=== PATIENT | male | born 1960 | race Caucasian/White ===

== ENCOUNTER 2020-08-05 07:20 | Outpatient (REF) | payer MEDICARE, SELFPAY ==
--- NOTE | ~2020-08-05 | MR_ITS ---
EXAMINATION: MR BRAIN WITHOUT CONTRAST CLINICAL INFORMATION: Optic neuritis. COMPARISON: None. TECHNIQUE: Multiplanar, multisequence imaging of the brain was performed without contrast. FINDINGS: No diffusion abnormalities are identified to suggest an acute infarct. The ventricles are normal in size. No mass effect or midline shift is seen. There is minimal T2 hyperintense signal change adjacent to the frontal horn of the right lateral ventricle. The remainder of the brain parenchyma appears normal. No extra-axial fluid collections are seen. The brainstem and cerebellum are normal. The gradient refocused acquisition is normal. The craniovertebral junction, marrow signal, and midline structures are normal. The major intracranial flow voids at the level of the [place] are preserved. The dural venous sinus flow voids are maintained. The mastoid air cells are well aerated. There is mild ethmoid sinus mucosal thickening, more so on the left side. MR/MR head/brain wo con IMPRESSION: No acute intracranial process. Minimal nonspecific right frontal periventricular white matter signal change of indeterminate clinical significance.
== END 2020-08-05 07:21 | disposition home or self-care (01) ==
LOC: HO.MRI 07:20
PROVIDERS: PCP Family Medicine; Visit Provider Psychiatry & Neurology Neurology
DX: H46.9 Unspecified optic neuritis (principal)
CPT/HCPCS: 70551

== ENCOUNTER 2023-09-20 06:59 | Emergency (ER) | payer MEDICARE, SELFPAY ==
--- NOTE | 2023-09-20 | ECG_ITS ---
Test Reason : chest pain Blood Pressure : / mmHG Vent. Rate : 058 BPM Atrial Rate : 058 BPM P-R Int : 142 ms QRS Dur : 102 ms QT Int : 408 ms P-R-T Axes : 067 052 077 degrees QTc Int : 400 ms Sinus bradycardia Inferior-posterior infarct , possibly acute ACUTE DE / STEMI Consider right ventricular involvement in acute inferior infarct Abnormal ECG No previous ECGs available Referred By: Generic ED Physician Electronically Signed By:CANDY NAVARRO MD
[2023-09-20 07:02] VITALS: BMI 28.3
--- NOTE | 2023-09-20 07:11 | ED_ITS ---
HPI - Chest Pain General Chief Complaint: Chest Pain Stated Complaint: Chest Pains Time Seen by Provider: 09/20/23 07:06 Source: patient Mode of arrival: ambulatory Limitations: no limitations History of Present Illness ED Provider: CHANCE VANEGAS narrative: 63 yo male with PMH of back pain on Rx oxycodone smokes THC quite cigarrettes 4 years ago has been having some irregular heartbeats recently so PCP was going to put him on holter monitor. He has noted increased YOUSIF or pain with exertion. Last two days chest pain on and off that worsened at 1030pm last night and will not go away across entire chest with dyspnea and nausea. He has two small bites on R posterior thigh after working in garden but has been having YOUSIF and irregular heartbeat and fatigue prior to that. The bites are dark purple and no ring noted. MD complaint: chest pain Onset (ago): day(s) (2) Timing of current episode: episodic Prior episodes: No Onset: during exertion Pain location: left chest and right chest Pain radiation: none Severity: severe Quality: other (pressure) Relieving factors: nothing Exacerbating factors: exertion Associated symptoms: nausea, diaphoresis and dyspnea Treatment prior to arrival: none Related Data Allergies Allergy/AdvReac Type Severity Reaction Status Date / Time No Known Allergies Allergy Verified 09/20/23 07:08 Review of Systems 2 Review of Systems: Constitutional : No Weight loss, No Fever, No Chills ENT/Mouth : No sore throat, No Rhinorrhea Eyes: No Eye Pain, No Swelling Cardiovascular : pos Chest Pain, pos SOB, pos Dyspnea on Exertion, No Orthopnea, No Edema, No Palpitations Respiratory : No Cough, No Sputum Gastrointestinal : pos Nausea, No Vomiting, No Diarrhea, No abdominal Pain, No Hematochezia, No Melena Genitourinary : No Dysuria, No Urinary Frequency Musculoskeletal : No joint pain, No Myalgias, No Joint Swelling Skin : No Skin Lesions, No rash Neuro : No Weakness, No Numbness, No Dizziness, No Headache All other systems reviewed and are negative [facility] Past Medical History Attestation statement: The following information was validated with the patient. Medical History Chronic back pain Social History Social History (Updated 09/20/23 @ 07:22 by Liliya Ramachandran DO) Patient Tobacco Use Status: Former Tobacco user Substance Use Type: Marijuana Physical Exam 2 Vital Signs: Vital Signs: Last Vital Signs Temp 97.8 F 09/20/23 07:13 Pulse 63 09/20/23 07:13 Resp 22 H 09/20/23 07:13 BP 143/69 H 09/20/23 07:13 Pulse Ox 99 09/20/23 07:13 O2 Del Method Room Air 09/20/23 07:13 BMI result Body Mass Index 28.3 Appearance: Alert. Oriented X3. in pain mild acute distress. Eyes: Pupils equal, round and reactive to light. ENT: Pharynx normal. Neck: Normal inspection. Neck supple. CVS: Normal heart rate and rhythm. Pulses normal. Respiratory: No respiratory distress. Breath sounds normal. Abdomen: Soft and nontender. Skin: Skin warm and slightly clammy. pale skin color. Normal skin turgor. Extremities: No lower extremity edema. R posterior thigh two small purple bites no associated bullseye or cellulitis Neuro: Oriented X 3. No motor deficit. No sensory deficit. Course Course Course Narrative: on arrival EKG was 0700 EMS and [facility] notified and called accepted by fellow after callback at 715am EMS has been notifed at 0700 still pending EMS transport at this time. We have called [facility] again to figure out transportation and where ambulance is. EMS in ED at 0729am patient has left the ED 735am Medications Administered Generic Name Dose Route Start Last Admin Trade Name Freq PRN Reason Stop Dose Admin Sodium Chloride 1,000 mls @ 999 mls/hr 09/20/23 07:10 09/20/23 07:18 Ns IV 09/20/23 08:10 999 mls/hr .Q1H1M ONE Administration Discontinued Medications Generic Name Dose Route Start Last Admin Trade Name Freq PRN Reason Stop Dose Admin Aspirin 324 mg 09/20/23 07:10 09/20/23 07:12 Aspirin 81 Mg Tab.Chew PO 09/20/23 07:11 324 mg ONCE ONE Administration Atorvastatin Calcium 80 mg 09/20/23 07:10 09/20/23 07:14 Atorvastatin Calcium 80 Mg Tablet PO 09/20/23 07:11 80 mg ONCE ONE Administration Fentanyl 50 mcg 09/20/23 07:10 09/20/23 07:15 Fentanyl Citrate/Pf 100 Mcg/2 Ml Vial IVPUSH 09/20/23 07:11 50 mcg ONCE ONE Administration Protocol Heparin Sodium (Porcine) 4,000 unit 09/20/23 07:10 09/20/23 07:18 Heparin Sodium,Porcine 5,000 Unit/Ml Vial IVPUSH 09/20/23 07:11 4,000 unit ONCE ONE Administration Ticagrelor 180 mg 09/20/23 07:10 09/20/23 07:12 Ticagrelor 90 Mg Tablet PO 09/20/23 07:11 180 mg ONCE ONE Administration Medical Decision Making Medical Decision Making MDM Narrative: 63 yo male with no sig PMH quit smoking 4 years ago only smokes THC no cocaine here with worsening chest pain x 2 days then non stop since 1030pm at this time inf and posterior KS - start on medication denies bleeding concerns - aspirin statin brilinta heparin fentanyl for pain - IVF no signs of overload on exam and transfer for cath. Differential Diagnosis Differential Diagnoses: The differential diagnosis associated with the presentation includes STEMI Admission/Observation Consideration of admission/observation: Escalation of care including admission/observation considered transfer to [facility] lab[facility] Consult Healthcare Provider Management of the patient was discussed with: Forensic Science Examiner (cardiac fellow ) Lab Data [facility] Lab Attestation statement: I reviewed the patient's lab results. 09/20/23 07:17 09/20/23 07:17 Labs: Lab Results 09/20/23 Range/Units 07:17 WBC 13.2 H (4.8-10.8) X10*3/uL RBC 5.76 (4.60-5.80) X10*6/uL Hgb 16.0 (14.0-18.0) g/dl Hct 47.8 (42.0-52.0) % MCV 83.0 (80.0-98.0) fL MCH 27.8 (27.0-33.0) pg MCHC 33.5 (31.0-36.0) g/dl RDW 15.0 (11.0-16.0) % Plt Count 212 (160-400) X10*3/uL MPV 8.8 L (9.4-12.4) fL Immature Gran % (Auto) 0.3 (0.0-0.4) % Neut % (Auto) 88.0 H (45-73) % Lymph % (Auto) 8.7 L (20-40) % Burke % (Auto) 2.8 (2-11) % Eos % (Auto) 0.0 (0-4) % Baso % (Auto) 0.2 (0-2) % Lymph # (Auto) 1.2 (1.2-4.9) X10*3/uL Burke # (Auto) 0.4 (0.1-1.2) X10*3/uL Eos # (Auto) 0.0 (0.0-0.4) X10*3/uL Baso # (Auto) 0.0 (0.0-0.2) X10*3/uL Abs Immat Gran (auto) 0.04 H (0.00-0.03) X10*3/uL Absolute Neuts (auto) 11.6 H (2.0-8.3) x10*3/uL Absolute Nucleated RBC 0.000 (0.0-0.012) X10*3/uL Nucleated RBC % (auto) 0.0 (0.0-0.2) /100WBC Independent Interpretation I performed an independent interpretation of an: EKG Interpretation: Rate: 58 Rhythm: sinus bradycardia [place]: normal Normal P waves. Normal MARIAA. Normal QRS complex. ST T wave : ALISHA II, III, avf, ST depressions I avl and V1-V3 qTC: 400 prior studies: inf post acute KS The study has been interpreted contemporaneously by me. . External Record Review External record reviewed: Office record Critical Care Time Critical Care Time Critical Care Time: Yes Total Critical Care Time: 30 Attestation: coordination of care, EMS transfer, consult, review of records, review of labs, STEMI transfer I attest to this time spent taking care of the patient IV fentanyl with improvement in pain Discharge Plan Discharge Clinical Impression: ST elevation myocardial infarction (STEMI) Transfer Details: [facility] Print Language: Turkish
[2023-09-20] MEDS: Ticagrelor 90 MG TABLET 180 MG PO (07:12)
[2023-09-20] MEDS: Aspirin 81 MG TAB.CHEW 324 MG PO (07:12)
[2023-09-20 07:13] VITALS: BP 143/69; PULSE 63; RESP 22; TEMP 36.6; O2SAT 99
[2023-09-20] MEDS: Atorvastatin Calcium 80 MG TABLET PO (07:14)
[2023-09-20] MEDS: fentaNYL citrate/PF 100 MCG/2 ML VIAL 50 MCG IVPUSH (07:15)
[2023-09-20] MEDS: 0.9 % Sodium Chloride 1,000 ML 999 ML IV (07:18)
[2023-09-20] MEDS: Heparin Sodium,Porcine 5,000 UNIT/ML VIAL 4000 UNIT IVPUSH (07:18)
--- NOTE | 2023-09-20 07:18 | PC.NURSE ---
pt presents to the ED from home. upon arrival to triage - pt c/o 10/10 left sided chest pain that started last night. woke him up from his sleep. pt waited until this morning to come to ED after calling his aunt who advised him to come. 1 episode n/v. pt denies sob. pt also states that pressure/aching sensation is nonradiating but c/o numbness/tingling behind LE bilaterally. upon entering ED2- pt c/o 10/10 pain in left side of chest. no sob/wob noted. 20gIV placed in the right AC - labs obtained/sent to lab. stemi kit pulled from [employer] by charge, BRITTNEY Dixon. medication administered per provider order. ekg performed by tech. pt seen by ED provider/aware of plan of care moving forward.
[2023-09-20 07:21] LABS: MANUAL DIFF FLAG NO
[2023-09-20 07:24] LABS: Basophils Percent Auto 0.2 % (0-2); Hematocrit 47.8 % (42.0-52.0); Imm Gran Abs Auto 0.04 X10*3/uL (0.00-0.03); Imm Gran Pct Auto 0.3 % (0.0-0.4); Lymphocytes Absolute Auto 1.2 X10*3/uL (1.2-4.9); Lymphocytes Percent Auto 8.7 % (20-40); Mean Corpuscular HGB Conc 33.5 g/dl (31.0-36.0); Mean Corpuscular Hemoglobin 27.8 pg (27.0-33.0); Mean Platelet Volume 8.8 fL (9.4-12.4); Monocytes Absolute Auto 0.4 X10*3/uL (0.1-1.2); Monocytes Percent Auto 2.8 % (2-11); Neutrophils Absolute Auto 11.6 x10*3/uL (2.0-8.3); Platelet Count 212 X10*3/uL (160-400); Red Blood Count 5.76 X10*6/uL (4.60-5.80); White Blood Count 13.2 X10*3/uL (4.8-10.8)
[2023-09-20 07:28] LABS: Prothrombin Time 11.8 SEC (11.1-13.3)
[2023-09-20 07:31] VITALS: BP 123/72; PULSE 76; RESP 20; O2SAT 98
--- NOTE | 2023-09-20 07:34 | PC.NURSE ---
you arrived at this time. report given to ALS crew. pt leaving [facility] to go to [facility] lab[facility].
[2023-09-20 07:41] LABS: Alanine Aminotransferase 24 U/L (0-40); Albumin Level 4.4 g/dL (3.5-5.0); Alkaline Phosphatase 61 U/L (39-117); Anion Gap 16 (12-20); Aspartate Amino Transferase 55 U/L (5-37); Bilirubin Direct 0.2 mg/dL (0.0-0.5); Bilirubin Total 0.6 mg/dL (0.0-1.0); Blood Urea Nitrogen 12 mg/dL (9-16); Calcium 9.5 mg/dL (8.4-10.2); Carbon Dioxide 24 mmol/L (22-29); Chloride 104 mmol/L (96-108); Creatinine Clr Calc Pharmacy 89.2; Estimated Glomerular Filt Rate > 60; Glucose Random 158 mg/dL (60-115); Potassium 4.4 mmol/L (3.3-5.1); Sodium 140 mmol/L (135-145); Total Protein 7.7 g/dL (6.5-8.0)
--- NOTE | 2023-09-20 07:42 | PC.NURSE ---
report given to BRITTNEY Mancuso in the corn lab technician at [facility] at this time.
[2023-09-20 07:43] VITALS: BP 123/72; PULSE 76; RESP 20; TEMP 36.6; O2SAT 98
[2023-09-20 07:50] LABS: Troponin-I High Sensitivity 1951.5 ng/L (<3.5-35.0)
== END 2023-09-20 08:00 | disposition short-term general hospital (02) ==
PROVIDERS: Emergency Provider Emergency Medicine; PCP Family Medicine
DX: I21.29 ST elevation (STEMI) myocardial infarction involving other sites (principal); S70.361A Insect bite (nonvenomous), right thigh, initial encounter; W57.XXXA Bitten or stung by nonvenomous insect and other nonvenomous arthropods, initial encounter; R06.09 Other forms of dyspnea; R06.02 Shortness of breath; R61 Generalized hyperhidrosis; G89.29 Other chronic pain; M54.9 Dorsalgia, unspecified; F12.90 Cannabis use, unspecified, uncomplicated; Z87.891 Personal history of nicotine dependence; Y93.H2 Activity, gardening and landscaping; Y92.007 Garden or yard of unspecified non-institutional (private) residence as the place of occurrence of the external cause; Y99.9 Unspecified external cause status; Z79.891 Long term (current) use of opiate analgesic
CPT/HCPCS: 36415; 80048; 80076; 83735; 84484; 85025; 85610; 93005; 96374; 96375; 99285; J1644; J3010

== ENCOUNTER → 2023-09-20 07:00 | Outpatient (BNV) | payer MEDICARE, SELFPAY | PROVIDERS: Emergency Provider Emergency Medicine; PCP Family Medicine; Visit Provider Internal Medicine Cardiovascular Disease | DX: R07.9 Chest pain, unspecified (principal); R00.1 Bradycardia, unspecified; R94.31 Abnormal electrocardiogram [ECG] [EKG] | CPT/HCPCS: 93010 ==

== ENCOUNTER 2023-10-04 14:38 | Outpatient (AMB) | payer MEDICARE, SELFPAY ==
--- NOTE | 2023-10-04 14:50 | MHC.OFFVIS ---
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 Intake Note: New patient was in [facility] and transfered to [facility] had stent feeling ok Chief School Finance Officer Required: No Allergies No Known Allergies Allergy (Verified 09/20/23 07:08) Medication List - Last Reconciled 10/04/23 by Corey Gilbert MD aspirin (Adult Aspirin Regimen) 81 mg PO DAILY atorvastatin 80 mg PO BEDTIME clopidogrel 75 mg PO DAILY metoprolol succinate ER 25 mg PO DAILY omeprazole 20 mg PO DAILY oxycodone-acetaminophen 5-325 mg 1 tab PO Q8H PRN HPI Comments Details: Thank you for referring Gibson in cardiology consultation today for management of coronary artery disease status post recent ST-elevation myocardial infarction. He has a 63-year-old male who said he was in good health and had hyperlipidemia but currently not treated suddenly developed chest pain syndrome at 10:30 in the night, waited till 06:00 in the morning came to the emergency room and was noted to have ST-elevation inferior myocardial infarction. He was then emergently transferred to [facility] very underwent emergent cardiac catheterization with noted 100% occlusion of the RCA undergoing drug-eluting stent. Post ND echocardiogram showed mildly reduced LV ejection fraction to 40-50% with associated inferior inferolateral wall motion abnormality. He was then discharged home on dual antiplatelet therapy, high-intensity statin therapy as well as metoprolol therapy without any clear follow-up. He comes for follow-up today and has been doing pretty exertional work in the d including filing of would as well as managing his lawn. He said he feels weak and had some episode of chest pressure in his over doing an exerting himself but has not had any lightheadedness, syncope. No prolonged palpitation irregular heartbeat. No heart failure symptoms. [facility] Medical History CAD (coronary artery disease) Chronic back pain Surgical History Stented coronary artery Hx of cardiac cath Family History Father No problems noted. Mother No problems noted. Social History Patient Tobacco Use Status: Former Tobacco user Substance Use Type: Marijuana Review of Systems Const Denies chills, Denies fatigue, Denies fever(s), Denies frequent falls, Denies weakness, Denies weight gain and Denies weight loss Eyes Denies loss of vision ENT Denies dizziness Card Denies chest pain, Denies leg edema, Denies lightheadedness, Denies palpitations, Denies dyspnea, Denies dyspnea on exertion, Denies orthopnea and Denies other (loss of consciousness) Resp Denies cough, Denies dyspnea, Denies dyspnea on exertion and Denies wheezing GI Denies hematochezia and Denies change in stool character Denies dysuria and Denies urinary frequency Musc Denies abnormal gait, Denies muscle weakness, Denies numbness, Denies radiating pain into limb and Denies tingling Skin/Breast Denies nail changes and Denies rash Neuro Denies abnormal gait, Denies dizziness, Denies frequent falls, Denies loss of vision, Denies memory loss, Denies numbness, Denies tingling and Denies weakness Psych Denies depression and Denies memory loss Endo Denies fatigue and Denies palpitations Cristobal/Lymph Reports easy bruising and Reports other (anemia) Aller/Immun Denies wheezing Physical Exam Vital Signs: Last Vital Signs Pulse 70 10/04/23 14:51 BP 130/70 10/04/23 14:51 BMI result Body Mass Index 28.3 Const General: cooperative, comfortable, no acute distress, alert, awake and Physically active Nutritional Appearance: average body habitus Orientation/consciousness: patient oriented x3 Limitations: no limitations HEENT Head: Yes normocephalic and Yes atraumatic Neck Neck: Yes trachea midline, Yes supple and Yes no JVD Resp Effort & Inspection: normal respiratory effort Auscultation: clear to auscultation bilaterally Cardio Jugular venous distension: no JVD Palpation: normal PMI Rate: regular rate Rhythm: regular rhythm Heart sounds: S1 normal heart sound present, S2 normal heart sound present, no click, no gallops, no murmurs and no rubs GI Auscultation: normal bowel sounds Skin General skin exam: no rashes or lesions noted Neuro General: patient oriented x3 and no focal motor deficits Extrem General: Yes no clubbing, cyanosis or edema Psych Appearance: grossly normal Office Procedures EKG Details: EKG shows normal sinus rhythm with inferior infar[place] [id number], Complete Assessment & Plan Assessment & Plan (1) Subsequent ST elevation (STEMI) myocardial infarction of inferior wall: Code(s): I22.1 - Subsequent ST elevation (STEMI) myocardial infarction of inferior wall Category: Medical Plan: Patient status post recent inferior ST-elevation myocardial infarction with persistent wall motion abnormality and LV systolic dysfunction. I have strongly recommended him to participate in phase 2 cardiac rehabilitation avoid strenuous exertion at home. We discussed pathophysiology of acute myocardial infarction and management of such. Discussed high-risk in the 1st 30 days following myocardial infarction as well as elevated risk for the 1st year after index event. He understands agrees. (2) CAD (coronary artery disease): Code(s): I25.10 - Atherosclerotic heart disease of [place] coronary artery without angina pectoris Category: Medical Plan: CAD with inferior STEMI with recent drug-eluting stent to the RCA. Pathophysiology of acute coronary syndrome as well as pathophysiology and management of drug-eluting stent was discussed. Continue uninterrupted dual antiplatelet therapy for 1 year. May consider prolonged dual antiplatelet therapy if his bleeding risk remains low. Continue aggressive blood pressure control. Continue high-intensity statin therapy. Target goal LDL closer to 60 mg/dL. Complete smoking cessation advised. Follow-up lipid panel in 6 weeks time. Participate in phase 2 cardiac rehabilitation as above. Advised to call me with any new symptoms. (3) Ischemic cardiomyopathy: Code(s): I25.5 - Ischemic cardiomyopathy Category: Medical Plan: Ischemic cardiomyopathy with mild LV systolic dysfunction with wall motion abnormality in the RCA territory without any evidence of congestive heart failure. Continue metoprolol therapy for neurohormonal modulation. Will add valsartan for neurohormonal modulation. Pathophysiology associated LV systolic dysfunction was discussed. Goals of therapy were discussed. Follow-up echocardiogram in 4 weeks time to see if there was associated with myocardial standing and if there is improvement in LV ejection fraction. Signs and symptoms of heart failure were discussed. Follow up in the clinic in 6 weeks time, sooner p.r.n.. Thank you for allowing me to partake in his care Orders: Orders Cardiac Rehab Today I22.1 - Subsequent ST elevation (STEMI) myocardial infarction of inferior wall, Z95.2 - Presence of prosthetic heart valve CA echo limited 4 Weeks I25.5 - Ischemic cardiomyopathy Lipid Panel 6 Weeks I25.10 - Atherosclerotic heart disease of [place] coronary artery without angina pectoris Medications: New valsartan 40 mg PO DAILY 30 tabs 5RF I25.10 - Atherosclerotic heart disease of [place] coronary artery without angina pectoris Coding Level of Care Code New Pt Level 4 (89611) Diagnoses Subsequent ST elevation (STEMI) myocardial infarction of inferior wall I22.1 CAD (coronary artery disease) I25.10 Ischemic cardiomyopathy I25.5 CPT Codes EKG - CPT: [id number], Complete ([id number])
[2023-10-04 14:51] VITALS: BP 130/70; PULSE 70; BMI 28.3
== END 2023-10-04 15:21 | disposition home or self-care (01) ==
PROVIDERS: PCP Family Medicine; Visit Provider Internal Medicine Cardiovascular Disease
DX: I22.1 Subsequent ST elevation (STEMI) myocardial infarction of inferior wall (principal); I25.10 Atherosclerotic heart disease of native coronary artery without angina pectoris; I25.5 Ischemic cardiomyopathy; Z95.5 Presence of coronary angioplasty implant and graft
CPT/HCPCS: 93010; 99214

== ENCOUNTER → 2023-10-04 14:38 | Outpatient (BNVA) | payer MEDICARE, SELFPAY | PROVIDERS: PCP Family Medicine; Visit Provider Internal Medicine Cardiovascular Disease | DX: I22.1 Subsequent ST elevation (STEMI) myocardial infarction of inferior wall (principal); I25.10 Atherosclerotic heart disease of native coronary artery without angina pectoris; I25.5 Ischemic cardiomyopathy | CPT/HCPCS: 93005; 99212 ==

== ENCOUNTER → 2023-11-03 07:48 | Outpatient (REF) | payer MEDICARE, SELFPAY ==
--- NOTE | 2023-11-03 07:51 | CA_ITS ---
Transthoracic Echocardiogram Patient (Last, First, Middle): Gibson Medina A Gender: Male Date of : 1960 Age: 63 Procedure Date: 11/03/2023 Procedure Type: Transthoracic Echocardiogram Location: OP Height: 175.26 cm Weight: 83.92 kg BSA: 2.00 m2 Heart Rate: 56 bpm BP: 118 / 70 mmHg Grooming Assistant: YAMILET Referring MD: Corey Gilbert MD Electrical Engineering Designer: Corey Gilbert MD Symptoms: I25.5 - Ischemic cardiomyopathy Study Quality: Adequate w/Contrast, Limited by order ECG Rhythm: Bradycardia Conclusions: - Normal LV ejection fraction 55-60% with impaired relaxation filling pattern with regional wall motion abnormality in RCA territory Findings Procedure Information Contrast agent, definity, is being given per protocol without apparent complications. Left Ventricle Normal left ventricular cavity size. There is normal left ventricular wall thickness. The left ventricular systolic function is normal. The visually estimated ejection fraction is between 55-60%. Spectral Doppler is indicative of an impaired relaxation filling pattern. Wall Motion Rest Echo Findings The mid inferoseptal segment is hypokinetic. The basal inferior, mid inferior, and basal inferoseptal segments are akinetic. All other scored wall segments showed normal motion. Prior Study Comparison No prior study available for comparison. Measurements 2D Linear Measurements IVSd: 0.75 0.6-0.9/0.6-1.0 cm LVIDd: 5.36 3.9-5.3/4.2-5.9 cm LVIDd Index: 2.68 2.4-3.2/2.2-3.1 cm/m2 LVIDs: 4.55 2.0-3.6 cm LVPWd: 0.88 0.7-1.1 cm LV Mass: 194.59 67-162/88-224 g LV Mass Index: 97.29 43-95/49-115 g/m2 LVOT Diam: 2.00 3.0+(-)1.3 cm 2D Systolic Function EF 4C: 59.00 >55% EF 2C: 57.40 >55% EF BiP: 58.60 >55% Mitral Valve MV Pk E: 0.92 MV PK A: 0.60 MV Decel Time: 167.00 E/A: 1.50 E'Lateral: 12.70 E'Medial: 8.49 E/E' Med: 10.80 E/E' Lat: 7.20 PHT: 49.00 MVA PHT: 4.49 Decel Willacy: 5.49 LVOT LVOT Pk Donald: 1.34 LVOT Mn Donald: 0.86 LVOT VTI: 0.28 LVOT Pk Grad: 7.00 LVOT Mn Grad: 4.00 LVOT Diam: 2.00 LVOT Area: 3.14 Diastolic Function MV Pk E: 0.92 MV Pk A: 0.60 E/A: 1.50 E'Medial: 8.49 E/E' Med: 10.80 E' Laterial: 12.70 E/E' Lat: 7.20 Updated in Other Vendor System with Status of Final Corey Gilbert MD electronically signed on 11/04/2023 11:46:08 AM with status of Final
== END ==
LOC: HO.CARD 07:48
PROVIDERS: PCP Family Medicine; Visit Provider Internal Medicine Cardiovascular Disease
DX: I25.5 Ischemic cardiomyopathy (principal)
CPT/HCPCS: 93308; Q9957

== ENCOUNTER → 2023-11-03 07:51 | Outpatient (BNV) | payer MEDICARE, SELFPAY | PROVIDERS: PCP Family Medicine; Visit Provider Internal Medicine Cardiovascular Disease | DX: I25.5 Ischemic cardiomyopathy (principal) | CPT/HCPCS: 93308; 93321; 93325 ==

== ENCOUNTER 2023-11-16 08:31 | Outpatient (AMB) | payer MEDICARE, SELFPAY ==
[2023-11-16 08:33] VITALS: BP 122/70; PULSE 68; BMI 27.9
--- NOTE | 2023-11-16 08:33 | A.OFFVIS_ITS ---
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 Allergies No Known Allergies Allergy (Verified 11/16/23 08:36) Medication List - Last Reconciled 11/16/23 by Cele Armas NP-C aspirin (Adult Aspirin Regimen) 81 mg PO DAILY atorvastatin 80 mg PO BEDTIME clopidogrel 75 mg PO DAILY metoprolol succinate ER 25 mg PO DAILY omeprazole 20 mg PO DAILY oxycodone-acetaminophen 5-325 mg 1 tab PO Q8H PRN valsartan 40 mg PO DAILY HPI HPI 6 wk f/up echo NS: Details: Gibson is a 63-year-old male with past medical history of hyperlipidemia who had recent inferior STEMI with drug-eluting stent placement to the RCA residual make cardiomyopathy who recently had a repeat echocardiogram and now presents for follow-up. Today he reports that he has been feeling well with no concerning chest discomfort. He has been doing exercises at home using a home gym set up. He has not been doing any cardio workout. He is starting cardiac rehab today. There was a delay in starting rehab due to various reasons. He is concerned about how he will feel when he gets his heart rate up and holds it there such as doing treadmill activities. No concerning shortness of breath, PND, orthopnea or edema. No lightheadedness, presyncope, syncope, falls. Taking meds as directed. FOR[facility]LY [facility], [facility] Medical History CAD (coronary artery disease) Chronic back pain Surgical History Stented coronary artery Hx of cardiac cath Family History Father No problems noted. Mother No problems noted. Social History Patient Tobacco Use Status: Former Tobacco user Substance Use Type: Marijuana Review of Systems Const All systems reviewed & are unremarkable except as noted in HPI and below ENT Denies dizziness Card Denies chest pain, Denies chest pain at rest, Denies chest pain with activity, Denies rapid heart rate, Denies pedal edema, Denies edema, Denies leg edema, Denies lightheadedness, Denies palpitations, Denies dyspnea, Denies dyspnea on exertion and Denies orthopnea Resp Denies cough, Denies dyspnea and Denies dyspnea on exertion GI Denies hematochezia and Denies change in stool character Musc Denies abnormal gait, Denies limited range of motion, Denies muscle cramps, Denies muscle weakness, Denies numbness, Denies radiating pain into limb, Denies stiffness and Denies tingling Neuro Denies abnormal gait, Denies dizziness, Denies numbness and Denies tingling Endo Denies palpitations Physical Exam Vital Signs: Last Vital Signs Pulse 68 11/16/23 08:33 BP 122/70 11/16/23 08:33 BMI result Body Mass Index 27.9 Const General: cooperative, healthy appearing, comfortable and no acute distress Orientation/consciousness: patient oriented x3 Neck Neck: Yes normal visual inspection and Yes no JVD Resp Effort & Inspection: normal respiratory effort Auscultation: clear to auscultation bilaterally, no crackles, no rales, no rhonchi and no wheezes Cardio Jugular venous distension: no JVD Rate: regular rate Rhythm: regular rhythm Heart sounds: S1 normal heart sound present, S2 normal heart sound present, no murmurs and no rubs Neuro General: patient oriented x3 Extrem General: Yes normal to inspection, No no pedal edema and No calf tenderness Psych Appearance: grossly normal Mental Status: mental status grossly normal Speech and movement: Normal speech and movement present Assessment & Plan Assessment & Plan (1) CAD (coronary artery disease): Code(s): I25.10 - Atherosclerotic heart disease of [place] coronary artery without angina pectoris Category: Medical Plan: Newer finding of CAD. Inferior STEMI 09/20/2023. Cardiac catheterization performed showing 100% RCA stenosis, ALINE was placed. Echocardiogram showed EF 40-50%, inferior and inferior lateral wall motion abnormality. He was started on dual anti-platelet therapy, high-dose atorvastatin, metoprolol. A repeat echocardiogram done 11/03/2023 showed EF 55-60%, impaired relaxation, wall motion abnormality in the RCA territory. Today he reports he has been feeling well with no concerning symptoms. He has not done any cardio workout. He plans to start cardiac rehab today. Signs and symptoms of angina reviewed. He says at the time of his SC he experienced a heavy pressure in his mid chest. Will have him continue aspirin and clopidogrel, dual anti-platelet therapy for at least 1 year, likely longer. Continue metoprolol and valsartan for neurohormonal modulation. Blood pressure today well controlled at 122/70. Continue high-dose atorvastatin with ideal LDL goal less than 70, closer to 60. He has upcoming labs do for his PCP, including cholesterol. Cardiology follow-up 3 months, sooner if needed. (2) Subsequent ST elevation (STEMI) myocardial infarction of inferior wall: Comment: STEMI 09/20/2023, cardiac catheterization left main and LAD minimal luminal irregularities, left circumflex mild luminal irregularities, RCA mid 100% stenosis, ALINE placed Code(s): I22.1 - Subsequent ST elevation (STEMI) myocardial infarction of inferior wall Category: Medical Plan: As above (3) Ischemic cardiomyopathy: Code(s): I25.5 - Ischemic cardiomyopathy Category: Medical Plan: As above. EF normalized on repeat echocardiogram, continues to have inferior wall motion abnormality. No clinical signs of heart failure on examination. (4) HLD (hyperlipidemia): Code(s): E78.5 - Hyperlipidemia, unspecified Category: Medical Plan: As above Plan Time spent on chart review, documentation, interview and assessment Coding Level of Care Code Est Pt Level 4 (50272) Diagnoses CAD (coronary artery disease) I25.[address] elevation (STEMI) myocardial infarction of inferior wall I22.1 Ischemic cardiomyopathy I25.5 HLD (hyperlipidemia) E78.5 Time Spent (min) 28
== END 2023-11-16 08:58 | disposition home or self-care (01) ==
LOC: HO.HCS 08:31
PROVIDERS: PCP Family Medicine; Visit Provider Nurse Practitioner Family
DX: I25.10 Atherosclerotic heart disease of native coronary artery without angina pectoris (principal); I22.1 Subsequent ST elevation (STEMI) myocardial infarction of inferior wall; I25.5 Ischemic cardiomyopathy; E78.5 Hyperlipidemia, unspecified
CPT/HCPCS: 99214

== ENCOUNTER → 2023-11-16 08:31 | Outpatient (BNVA) | payer MEDICARE, SELFPAY | PROVIDERS: PCP Family Medicine; Visit Provider Nurse Practitioner Family | DX: I25.5 Ischemic cardiomyopathy (principal); I22.1 Subsequent ST elevation (STEMI) myocardial infarction of inferior wall; E78.5 Hyperlipidemia, unspecified; Z95.5 Presence of coronary angioplasty implant and graft; Z98.890 Other specified postprocedural states | CPT/HCPCS: 99212 ==

== ENCOUNTER 2023-11-24 07:00 | Outpatient (RCR) | payer MEDICARE, SELFPAY | END 2023-11-27 07:06 | disposition home or self-care (01) | LOC: HO.CR 07:00 | PROVIDERS: PCP Family Medicine; Visit Provider Internal Medicine Cardiovascular Disease | DX: I22.1 Subsequent ST elevation (STEMI) myocardial infarction of inferior wall (principal); Z95.2 Presence of prosthetic heart valve | CPT/HCPCS: 93797; 93798 ==

== ENCOUNTER 2024-03-07 13:08 | Outpatient (AMB) | payer MEDICARE, SELFPAY ==
[2024-03-07 13:11] VITALS: BP 120/62; PULSE 75; BMI 28.2
--- NOTE | 2024-03-07 13:11 | MHC.OFFVIS ---
Vital Signs 03/07/24 13:11 Height 5 ft 7 in Weight 180 lb 5.41 oz BMI 28.2 BP 120/62 Blood Pressure Location Lt brachial Position Sitting Pulse 75 Pulse Source Pulse Oximeter Intake Visit Reasons: 3m follow up Allergies No Known Allergies Allergy (Verified 03/07/24 13:14) Medication List - Last Reconciled 03/07/24 by Cele Armas NP-C aspirin (Adult Aspirin Regimen) 81 mg PO DAILY atorvastatin 80 mg PO BEDTIME clopidogrel 75 mg PO DAILY metoprolol succinate ER 25 mg PO DAILY oxycodone-acetaminophen 5-325 mg 1 tab PO Q8H PRN pantoprazole (Protonix) 40 mg PO DAILY valsartan 40 mg PO DAILY HPI HPI 3m follow up: Details: Gibson is a 63-year-old male with past medical history of hyperlipidemia who had inferior STEMI, 09/20/23, with drug-eluting stent placement to the RCA, ischemic cardiomyopathy who presents for follow up. Today he reports that he has been feeling well with recurrent chest discomfort. He tried cardiac rehab but only attended a few sessions. He exercises at home every other day which has been his pattern throughout his adulthood. He uses exercise machines and does a treadmill for 30 minutes at a time. He tolerates this well with no concerning symptoms. No shortness of breath, PND, orthopnea or edema. No lightheadedness, presyncope, syncope, falls. Taking meds as directed. No bleeding issues reported. FORMERLY [facility] Medical History CAD (coronary artery disease) Chronic back pain Surgical History Stented coronary artery Hx of cardiac cath Family History Father No problems noted. Mother No problems noted. Social History Patient Tobacco Use Status: Former Tobacco user Substance Use Type: Marijuana Review of Systems Const All systems reviewed & are unremarkable except as noted in HPI and below ENT Denies dizziness Card Denies chest pain, Denies chest pain at rest, Denies chest pain with activity, Denies rapid heart rate, Denies pedal edema, Denies edema, Denies leg edema, Denies lightheadedness, Denies palpitations, Denies dyspnea, Denies dyspnea on exertion and Denies orthopnea Resp Denies cough, Denies dyspnea and Denies dyspnea on exertion GI Denies hematochezia and Denies change in stool character Musc Denies abnormal gait, Denies limited range of motion, Denies muscle cramps, Denies muscle weakness, Denies numbness, Denies radiating pain into limb, Denies stiffness and Denies tingling Neuro Denies abnormal gait, Denies dizziness, Denies numbness and Denies tingling Endo Denies palpitations Physical Exam Vital Signs: BMI result Body Mass Index 28.2 Const General: cooperative, healthy appearing, comfortable and no acute distress Orientation/consciousness: patient oriented x3 Neck Neck: Yes normal visual inspection and Yes no JVD Resp Effort & Inspection: normal respiratory effort Auscultation: clear to auscultation bilaterally, no crackles, no rales, no rhonchi and no wheezes Cardio Jugular venous distension: no JVD Rate: regular rate Rhythm: regular rhythm Heart sounds: S1 normal heart sound present, S2 normal heart sound present, no murmurs and no rubs Neuro General: patient oriented x3 Extrem General: Yes normal to inspection, No no pedal edema and No calf tenderness Psych Appearance: grossly normal Mental Status: mental status grossly normal Speech and movement: Normal speech and movement present Assessment & Plan Assessment & Plan (1) CAD (coronary artery disease): Code(s): I25.10 - Atherosclerotic heart disease of [place] coronary artery without angina pectoris Category: Medical Plan: Newer finding of CAD. Inferior STEMI 09/20/2023. His angina was a heavy pressure in mid chest that day. Cardiac catheterization showed 100% RCA stenosis, ALINE was placed. Echocardiogram initially showed EF 40-50%, inferior and inferior lateral wall motion abnormality. He was started on dual anti-platelet therapy, high-dose atorvastatin, metoprolol. A repeat echocardiogram done 11/03/2023 showed EF 55-60%, impaired relaxation, wall motion abnormality in the RCA territory. Today he reports he has been feeling well with no concerning symptoms. He briefly attended cardiac rehab. He exercises routinely at home. Signs and symptoms of angina reviewed. Will have him continue aspirin and clopidogrel, dual anti-platelet therapy for at least 1 year, likely longer. Continue metoprolol and valsartan for neurohormonal modulation. Blood pressure today well controlled at 120/62. Continue high-dose atorvastatin with ideal LDL goal less than 70, closer to 60. He reports recent labs done by his PCP. Will reach out to that office to obtain results. Cardiology follow-up 6 months, sooner if needed. (2) Subsequent ST elevation (STEMI) myocardial infarction of inferior wall: Comment: STEMI 09/20/2023, cardiac catheterization left main and LAD minimal luminal irregularities, left circumflex mild luminal irregularities, RCA mid 100% stenosis, ALINE placed Code(s): I22.1 - Subsequent ST elevation (STEMI) myocardial infarction of inferior wall Category: Medical Plan: As above (3) Ischemic cardiomyopathy: Code(s): I25.5 - Ischemic cardiomyopathy Category: Medical Plan: As above. EF normalized on repeat echocardiogram, continues to have inferior wall motion abnormality. No clinical signs of heart failure on examination. (4) HLD (hyperlipidemia): Code(s): E78.5 - Hyperlipidemia, unspecified Category: Medical Plan: As above Plan Time spent on chart review, documentation, interview and assessment Medications: Changed From pantoprazole (Protonix) Replaces omeprazole (while taking Clopidogrel) 20 mg PO DAILY 90 tabs 3RF To pantoprazole (Protonix) Replaces omeprazole (while taking Clopidogrel) 40 mg PO DAILY Coding Level of Care Code Est Pt Level 4 (76265) Complex EM visit Add On G2211 Diagnoses CAD (coronary artery disease) I25.[address] elevation (STEMI) myocardial infarction of inferior wall I22.1 Ischemic cardiomyopathy I25.5 HLD (hyperlipidemia) E78.5 Time Spent (min) 28
== END 2024-03-07 13:37 | disposition home or self-care (01) ==
PROVIDERS: PCP Family Medicine; Visit Provider Nurse Practitioner Family
DX: I25.10 Atherosclerotic heart disease of native coronary artery without angina pectoris (principal); I22.1 Subsequent ST elevation (STEMI) myocardial infarction of inferior wall; I25.5 Ischemic cardiomyopathy; E78.5 Hyperlipidemia, unspecified
CPT/HCPCS: 99214; G2211

== ENCOUNTER → 2024-03-07 13:08 | Outpatient (BNVA) | payer MEDICARE, SELFPAY | PROVIDERS: PCP Family Medicine; Visit Provider Nurse Practitioner Family | DX: I25.10 Atherosclerotic heart disease of native coronary artery without angina pectoris (principal); I25.2 Old myocardial infarction; I25.5 Ischemic cardiomyopathy; E78.5 Hyperlipidemia, unspecified | CPT/HCPCS: 99212 ==

== ENCOUNTER 2024-08-15 09:04 | Outpatient (AMB) | payer MEDICARE, SELFPAY ==
[2024-08-15 09:12] VITALS: BP 122/80; PULSE 60; BMI 27.6
--- NOTE | 2024-08-15 09:12 | MHC.OFFVIS ---
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 He has been doing well from cardiac perspective. Occasionally still feels symptoms of palpitations. However denies any exertional chest pain or shortness of breath. He could not tolerate valsartan therapy with low blood pressure as well as GI upset. He is off valsartan. He is taking all other medications including dual antiplatelet therapy, high-intensity statin as well as metoprolol. He says last LDL was 48 in May. I do not have a copy of the same. Denies any prolonged palpitation irregular heartbeat. No syncopal episodes. No orthopnea, PND, leg edema. FORMERLY [facility] Medical History (Updated 08/15/24 @ 09:41 by Corey Gilbert MD) Subsequent ST elevation (STEMI) myocardial infarction of inferior wall CAD (coronary artery disease) Chronic back pain Surgical History Stented coronary artery Hx of cardiac cath Family History Father No problems noted. Mother No problems noted. Social History Patient Tobacco Use Status: Former Tobacco user Substance Use Type: Marijuana Review of Systems Const Denies chills, Denies fatigue, Denies fever(s), Denies frequent falls, Denies weakness, Denies weight gain and Denies weight loss ENT Denies dizziness Card Denies chest pain, Denies leg edema, Denies lightheadedness, Denies palpitations, Denies dyspnea, Denies dyspnea on exertion, Denies orthopnea and Denies other (loss of consciousness) Resp Denies cough, Denies dyspnea and Denies dyspnea on exertion GI Denies hematochezia and Denies change in stool character Musc Denies abnormal gait, Denies muscle weakness, Denies numbness, Denies radiating pain into limb and Denies tingling Neuro Denies abnormal gait, Denies dizziness, Denies frequent falls, Denies numbness, Denies tingling and Denies weakness Endo Denies fatigue and Denies palpitations Physical Exam Vital Signs: Last Vital Signs Pulse 60 08/15/24 09:12 BP 122/80 08/15/24 09:12 BMI result Body Mass Index 27.6 Const General: cooperative, healthy appearing, comfortable and no acute distress Orientation/consciousness: patient oriented x3 Neck Neck: Yes normal visual inspection and Yes no JVD Resp Effort & Inspection: normal respiratory effort Auscultation: clear to auscultation bilaterally, no crackles, no rales, no rhonchi and no wheezes Cardio Jugular venous distension: no JVD Rate: regular rate Rhythm: regular rhythm Heart sounds: S1 normal heart sound present, S2 normal heart sound present, no murmurs and no rubs Neuro General: patient oriented x3 Extrem General: Yes normal to inspection, No no pedal edema and No calf tenderness Psych Appearance: grossly normal Mental Status: mental status grossly normal Speech and movement: Normal speech and movement present Office Procedures EKG Details: EKG shows normal sinus rhythm with normal EKG at 60 beats per minute [id number], Complete Assessment & Plan Assessment & Plan (1) CAD (coronary artery disease): Code(s): I25.10 - Atherosclerotic heart disease of [place] coronary artery without angina pectoris Category: Medical Plan: CAD status post inferior STEMI in September of 2023 status post drug-eluting stent to RCA with nonobstructive disease in the other segment. Patient was doing well from that perspective. Will continue dual antiplatelet therapy till September of 2024. At which time can be switch to low-dose aspirin therapy for life. This was discussed with him. Importance of medical therapy was discussed. Also continue high-intensity statin therapy with target goal LDL less than 55 mg/dL. Advised lipid panel which is being followed through your office to be forwarded to your office. Blood pressure is currently well optimized encouraged to continue to participate in physical activity as tolerated. (2) Ischemic cardiomyopathy: Code(s): I25.5 - Ischemic cardiomyopathy Category: Medical Plan: Ischemic cardiomyopathy at the time of myocardial infarction. Following that echocardiogram last year showed normalized LV ejection fraction. EKG shows no Q-waves. Patient was doing well. Currently on valsartan therapy which is fine due to intolerance. Continue metoprolol therapy. No other workup is indicated at this point time. (3) Palpitations: Code(s): R00.2 - Palpitations Plan: Intermittent episodes of palpitation suggestive of extra systoles such as PVCs. He was had them for many years. Continue metoprolol therapy for the same. Avoidance of stimulants was discussed. Stress mitigation strategies was discussed. (4) Preop cardiovascular exam: Code(s): Z01.810 - Encounter for preprocedural cardiovascular examination Plan: Preoperative cardiovascular risk stratification for colonoscopy which is considered low risk procedure. This will be scheduled after 1 year anniversary of his stent. At which point time clopidogrel will be discontinued. He is currently optimized to undergo this procedure with low risk for perioperative cardiovascular morbidity mortality and aspirin can be withheld for 5-7 days prior to the procedure. Continue metoprolol and statins in the perioperative period. Will follow up in the clinic in 1 year's time, sooner p.r.n.. Thank you for allowing me to partake in his care Orders: Referrals Gastroenterology Referral Z12.11 - Encounter for screening for malignant neoplasm of colon Coding Level of Care Code Est Pt Level 4 (62382) Complex EM visit Add On G2211 Diagnoses CAD (coronary artery disease) I25.10 Ischemic cardiomyopathy I25.5 Palpitations R00.2 Preop cardiovascular exam Z01.810 CPT Codes EKG - CPT: [id number], Complete ([id number])
--- OUTSIDE RECORDS SUMMARY | 2024-08-15 09:44 | XMS_ITS | Data Portability ---
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 Presumptive Premature Ventricular Contractions (PVCs). The patient's symptoms are likely indicative of benign PVCs, which are generally benign and unlikely to cause complications. It is more likely to manifest during periods of anxiety due to an elevated adrenal level, leading to increased heartbeats. Typically, the benign PVCs resolve during exercise. A Holter monitor will be ordered for the patient, which he will wear for a duration of 2 to 3 days. 2. Hypercholesterolem ia. The patient's 10-year risk of experiencing a heart attack is estimated to be approximately 10 percent. His blood pressure is well-regulated, and he is not overweight. The patient is advised to reduce his cholesterol levels by reducing saturated fats such as red meats, butter, and cheese. Fasting blood work will be repeated within the next 1 to 2 weeks. Should his cholesterol levels remain elevated, we will consider initiating medication. Follow-up The patient is scheduled for a follow-up visit in 3 months. [email or web address] Not available 09/01/2023 08:57:51 09/27/2023 09/27/2023 1. Myocardial infarction. The patient's medical history includes a myocardial infarction. A comprehensive discussion was held with the patient regarding the importance of maintaining optimal blood pressure and cholesterol levels, emphasizing the importance of adhering to a healthy diet, avoiding fried foods, and incorporating more fruits, vegetables, and whole grains into his diet. A gradual increase in physical activity was recommended, starting with half a mile and gradually increasing to 2-3/4 of a mile every 3 to 5 days. A blood level check was recommended in 3 weeks to monitor his cholesterol levels, kidney function, and blood count. Follow-up A follow-up appointment is scheduled for 1 month from now. judy Not available 09/28/2023 10:05:21 12/06/2023 12/06/2023 1. Post-myocardi al infarction status. He had a myocardial infarction on September 19 and has since undergone cardiac rehabilitation. He reports no chest pain or shortness of breath during workouts. 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 He is currently on aspirin, clopidogrel, atorvastatin, metoprolol, valsartan, and Entresto. His blood pressure, height, and weight are within normal ranges. Recent blood work shows a significant reduction in LDL levels from 175 to 50, with total cholesterol at 107, triglycerides within normal limits, and uric acid at 4.3. Glucose and kidney function tests are normal, and there is no evidence of anemia. He was advised to abstain from smoking marijuana due to its potential to exacerbate heart disease. The importance of maintaining physical activity and adhering to his medication regimen was emphasized. Clopidogrel may be discontinued after a year, leaving him on aspirin alone. The significance of annual influenza vaccines and the COVID-19 vaccine was discussed due to his increased risk. He was advised to avoid standing up quickly and to ensure adequate hydration. A healthy diet rich in fruits, vegetables, and whole grains, while limiting fried foods, was recommended. He was instructed to seek immediate medical attention if he experiences chest pain. If he falls ill, he should be tested for COVID-19 and consider taking Paxlovid, which can reduce the likelihood of severe illness over a 5-day course. 2. Back pain. He reports ongoing back pain with occasional numbness and tingling in the legs, which has been present for 27 years. He has not had surgery for this condition. His back pain is stable but not improving. He is currently taking oxycodone for pain management. He was advised to continue monitoring his symptoms and to seek further evaluation if there is any worsening of pain or new symptoms. Follow-up He is scheduled for a wellness visit in March 2024. judy Not available 12/06/2023 14:34:13 04/24/2024 04/24/2024 1. Post-myocardi al infarction status. He experienced a myocardial infarction in September 2023, which resulted in significant cardiac damage. He has been informed that his primary risk factor for mortality is another myocardial infarction. His current medication regimen includes aspirin, clopidogrel, metoprolol, valsartan, and atorvastatin. He has been educated about the importance of these medications in preventing further cardiac events. He has been advised to maintain adequate hydration and to sit at the edge of the bed before standing to allow his body to adjust. He has also been encouraged to continue his exercise routine and to incorporate more fiber into his diet. He has been informed that he may need to discontinue his blood thinners prior to undergoing a colonoscopy. He has been advised to postpone his colonoscopy until spring 2024, at which time he will be off the clopidogrel and aspirin, making it safer to stop them temporarily for the procedure. He will continue his current medication regimen. A prescription for famotidine 40 mg has been provided, and he has been advised to switch from pantoprazole to famotidine to see if it provides relief without interfering with his other medications. He has been advised to add a tablespoon of psyllium seeds to his diet. Laboratory tests have been ordered to monitor his cholesterol levels and complete blood count. He has been instructed to schedule a fasting appointment for these tests. Follow-up The patient will follow up in 3 months. judy Not available 04/25/2024 21:09:03 08/01/2024 08/01/2024 Assessment and Plan Wellness Visit Routine wellness visit. Weight stable at 171 lbs. Blood pressure low but asymptomatic. Discussed flu and COVID vaccination importance due to age and coronary artery disease. - Encourage continuation of current exercise and dietary habits. - Advise against further weight loss. - Discuss importance of annual flu and COVID vaccinations. - Plan for pneumonia and shingles vaccinations at age 67. Hypertension Blood pressure low at 110/60 mmHg, likely due to weight loss and exercise. No symptoms of dizziness or lightheadedness. Discussed potential valsartan dosage reduction if blood pressure remains low. - Recommend regular blood pressure monitoring at home or using a kiosk. - Consider reducing valsartan dosage if blood pressure remains consistently low. Coronary artery disease with myocardial infarction Myocardial infarction in 2023 with stent placement. No current chest pain. Discussed potential discontinuation of clopidogrel and metoprolol after apartment maintenance supervisor evaluation. - Continue aspirin, atorvastatin, and clopidogrel as prescribed. - Consult apartment maintenance supervisor regarding potential discontinuation of clopidogrel and metoprolol. Gastroesophageal reflux disease (GERD) Intermittent acid reflux symptoms. Famotidine used but symptoms persist. Discussed potential use of pantoprazole if symptoms worsen. - Continue famotidine as needed. - Consider pantoprazole if GERD symptoms worsen. Chronic pain syndrome Chronic back, leg, and hip pain managed with oxycodone. Pain worsens without exercise. Regular urine screens for opioid compliance. - Continue oxycodone as prescribed. - Encourage regular exercise to manage pain. - Perform periodic urine screens for opioid compliance. General Health Maintenance Emphasized importance of vaccinations and screenings due to age and medical history. - Encourage annual flu and COVID vaccinations. - Plan for pneumonia and shingles vaccinations at age 67. Follow-up Follow-up plans for cardiology and colonoscopy. Colonoscopy overdue due to previous heart event and medication concerns. - Schedule follow-up with apartment maintenance supervisor in two weeks. - Arrange for colonoscopy referral and appointment. - Schedule blood work in September. - Plan for wellness visit in six months. judy Not available 08/04/2024 08:55:24 Plan of Treatment Reminders Order Date Submit Date Provider Last Modified By Organization Details Last Modified Time Details Appointments LAB [facility] 2024 06:40A M [facility] Not available Not available Not available [facility], 15 2024 08:00A M Evin March MD Not available Not available [facility]A M Evin March MD Not available Not available Not available Lab lipid panel , serum 2024 025 [facility], [address] [place], [address], 05/03/2024 14:06:39 drug scree n, urine - Last dose Oxyco done 5 at 8:00a m. T=92 2024 025 [facility], [address] [place], [address], 04/26/2024 13:46:17 CMP, serum or plasm a 2024 025 [facility], [address] [place] [address], [id number], 05/03/2024 14:06:38 CBC 2024 025 [facility], [address] [place] [address], [id number], 05/02/2024 11:04:25 gluco se, QN [mass /volu me], serum or plasm a [facility] [address] [place] [address], [id number], 12/01/2023 13:48:36 drug scree n, urine - Oxyco done Last Intak e: 7 am Temp: 94F 2023 024 [facility], [address] [place] [address], [id number], 09/01/2023 15:29:25 Referral gastr lacy davis isoliva refer ral - for colon oscop y posto ve famil y histo ry 2024 025 [email or web address] [facility], [address] [place] [address] Dr, [facility], [place], [address], 08/05/2024 11:14:06 Procedures None recor ded. Surgeries None recor ded. Imaging None recor ded. Medication Orders Narca n 4 mg/ac tuati on nasal spray 2024 025 [id number], [address], [place], [id number], 08/01/2024 08:29:43 famot idine 40 mg table t 2024 025 [facility] Not available 04/24/2024 08:32:57 Narca n 4 mg/ac tuati on nasal spray 2023 024 [facility] Not available 12/06/2023 14:35:00 Patient TargetsNo targets recorded. Patient Instructions Encounter Date Encounter Id Patient Instructions Last Modified By Organization Details Last Modified Time 09/27/2023 [id number] I am aware of e inpatient facility discharge medications, the medication list above has been reconciled with those medications and reflects my understanding of an up to date medication list for this patient. [email or web address] Not available 09/27/2023 11:48:31 12/06/2023 [id number] My Health To Do List Specific Analgesia Plan: {{Continue present regimen* Adjust dose of present analgesic Switch analgesics Add/Adj ust concomitant therapy Discontinu e/taper off opioid therapy}} Specific Goals for next visit {{increase exercise* start stress management improve sleeping start Yoga start TaiChi see therapist}}The patient is currently {{at* not at}} their goal of safe, stable use of narcotic pain medication to improve their functioning in life. Since the last visit there has been {{activity of concern no activity of concern*}}:{{# ove ruse of meds request for an early refill abuse of staff noncomplianc e with UDS or pill count requests abnormal UDS}} Patient today is {{at high risk at moderate risk at low risk*}} for {{abuse of meds* misuse of meds}}. Monitoring will include {{pill counts repeat UDS* closer follow-up with shorter scripts}}. Patients current goals of {{better sleep more activity* return to work return to school improved ADL's improved self care improved function in roles}} were discussed with patient, unlikelihood of 100% reduction in pain made clear. Patient has read narcotics contract and understands the properties of narcotic medication. [email or web address] Not available 12/06/2023 08:01:44 08/01/2024 [id number] My Health To Do List Specific Analgesia Plan: {{Continue present regimen* Adjust dose of present analgesic Switch analgesics Add/Adj ust concomitant therapy Discontinu e/taper off opioid therapy}} Specific Goals for next visit {{increase exercise* start stress management improve sleeping start Yoga start TaiChi see therapist}}The patient is currently {{at* not at}} their goal of safe, stable use of narcotic pain medication to improve their functioning in life. Since the last visit there has been {{activity of concern no activity of concern*}}:{{# ove ruse of meds request for an early refill abuse of staff noncomplianc e with UDS or pill count requests abnormal UDS}} Patient today is {{at high risk at moderate risk at low risk*}} for {{abuse of meds* misuse of meds}}. Monitoring will include {{pill counts repeat UDS* closer follow-up with shorter scripts}}. Patients current goals of {{better sleep more activity* return to work return to school improved ADL's improved self care improved function in roles}} were discussed with patient, unlikelihood of 100% reduction in pain made clear. Patient has read narcotics contract and understands the properties of narcotic medication. [email or web address] Not available 08/01/2024 08:00:19 Reason for Referral Jack Tamp Operator Referral for Screening for malignant neoplasm of colon for colonoscopy postove family history Referring Physician: Evin March, Family Medicine, Encounter Date: 08/01/2024 Results Created Date Observation Date Name Description Value Unit Range Abnormal Flag Note LastModifiedBy Organization Detail LastModifiedTime 09/01/19 24 09/01/2023 DRUG SCREE N-8, URINE , WITH CONFI RMATI ON GC/MS amphetamine NEG. negati ve Not Available [address], [address], 09/01/2023 15:29:25 09/01/19 24 09/01/2023 DRUG SCREE N-8, URINE , WITH CONFI RMATI ON GC/MS barbiturates NEG. negati ve Not Available [address], [address], 09/01/2023 15:29:25 09/01/19 24 09/01/2023 DRUG SCREE N-8, URINE , WITH CONFI RMATI ON GC/MS benzodiazepi ne NEG. negati ve Not Available [address], [address], 09/01/2023 15:29:25 09/01/19 24 09/01/2023 DRUG SCREE N-8, URINE , WITH CONFI RMATI ON GC/MS cocaine NEG. negati ve Not Available [address], [address], 09/01/2023 15:29:25 09/01/19 24 09/01/2023 DRUG SCREE N-8, URINE , WITH CONFI RMATI ON GC/MS opiates NEG. negati ve Not Available [address], [address], 09/01/2023 15:29:25 09/01/19 24 09/01/2023 DRUG SCREE N-8, URINE , WITH CONFI RMATI ON GC/MS methadone NEG. negati ve Not Available [address], [address], 09/01/2023 15:29:25 09/01/19 24 09/01/2023 DRUG SCREE N-8, URINE , WITH CONFI RMATI ON GC/MS fentanyl NEG. negati ve Syva EMIT II Limit s of Detec tion (cutt -off value s) [place] Expan d: Amphe tamin es: 1000 ng/ml Opiat es: 300 ng/ml Talisha tuate s: 200 ng/ml Oxyco done 100 ng/ml Benzo diaze pines : 200 ng/ml Metha done 300 ng/ml Cocai ne: 300 ng/ml Fenta nyl 1 ng/ml Not Available [address], [address], 09/01/2023 15:29:25 09/01/19 24 09/01/2023 DRUG SCREE N-8, URINE , WITH CONFI RMATI ON GC/MS oxycodone POS. negati ve GCMS= Sampl e sent to [facility] for confi rmati on by GC/MS . Not Available [address], [address], 09/01/2023 15:29:25 09/01/19 24 09/04/2023 DRUG TOX MONIT ORING OPIAT ES EXPAN DED QN, U codeine NEGATI VE NG/mL <50 See Note 1 [facility] [address] [place] [address] B, [place], [address], 09/04/2023 09:23:05 09/01/19 24 09/04/2023 DRUG TOX MONIT ORING OPIAT ES EXPAN DED QN, U hydrocodone NEGATI VE NG/mL <50 See Note 1 Not Available [facility] [place] [facility] [address], [place], [address], 09/04/2023 09:23:05 09/01/19 24 09/04/2023 DRUG TOX MONIT ORING OPIAT ES EXPAN DED QN, U hydromorphon e NEGATI VE NG/mL <50 See Note 1 Not Available [facility] [place] [facility] [address], [place], [address], 09/04/2023 09:23:05 09/01/19 24 09/04/2023 DRUG TOX MONIT ORING OPIAT ES EXPAN DED QN, U morphine NEGATI VE NG/mL <50 See Note 1 Not Available [facility] [place] [facility] [address], [place], [address], 09/04/2023 09:23:05 09/01/19 24 09/04/2023 DRUG TOX MONIT ORING OPIAT ES EXPAN DED QN, U norhydrocodo ne NEGATI VE NG/mL <50 See Note 1 Not Available [facility] [place] [facility] [address], [place], [address], 09/04/2023 09:23:05 09/01/19 24 09/04/2023 DRUG TOX MONIT ORING OPIAT ES EXPAN DED QN, U noroxycodone 785 NG/mL <50 high See Note 1 Not Available [facility] [place] [facility] [address], [place], [address], 09/04/2023 09:23:05 09/01/19 24 09/04/2023 DRUG TOX MONIT ORING OPIAT ES EXPAN DED QN, U oxycodone 332 NG/mL <50 high See Note 1 Not Available [facility] [place] [facility] [address], [place], [address], 09/04/2023 09:23:05 09/01/19 24 09/04/2023 DRUG TOX MONIT ORING OPIAT ES EXPAN DED QN, U oxymorphone 278 NG/mL <50 high See Note 1 Not Available [facility] [place] [facility] [address], [place], [address], 09/04/2023 09:23:05 09/01/19 24 09/04/2023 DRUG TOX MONIT ORING OPIAT ES EXPAN DED QN, U Unknown Analyte See Note 2 Note 1 This test was devel kirked and its amber tical perfo rmanc e cathy cteri stics have been deter mined by [facility]. It has not been clear ed or appro osmin by the FDA. This assay has been valid ated pursu ant to the CLIA regul ation s and is used for clini lakia purpo ses. Note 2 This drug testi ng is for medic al treat ment only. Amber sis was perfo rmed as non-f orens ic testi ng and these resul ts shoul d be used only by healt hcare provi ders to rende r diagn osis or treat ment, or to monit or progr ess of medic al condi tions . For darius tance with inter preti ng these drug resul ts, pleas e conta ct a [facility] Toxic ology Speci alist : [phone] X [phone] ( [phone] ), M-F, 8am-6 pm EST. Not Available [facility] [place] [facility] [address], [place], [address], 09/04/2023 09:23:05 11/30/19 24 11/30/2023 CBC WBC 7.87 K/? ? ?L 4.23-9 .07 Not Available [address], [address], 11/30/2023 10:27:50 11/30/19 24 11/30/2023 CBC RBC 5.55 M/? ? ?L 4.63-6 .08 Not Available [address], [address], 11/30/2023 10:27:50 11/30/19 24 11/30/2023 CBC HGB 15.2 g/dL 13.7-1 7.5 Not Available [address], [address], 11/30/2023 10:27:50 11/30/19 24 11/30/2023 CBC HCT 47.5 % 40.1-5 1.0 Not Available [address], [address], 11/30/2023 10:27:50 11/30/19 24 11/30/2023 CBC MCV 85.6 fL 79.0-9 2.2 Not Available [address], [address], 11/30/2023 10:27:50 11/30/19 24 11/30/2023 CBC MCH 27.4 pg 25.7-3 2.2 Not Available [address], [address], 11/30/2023 10:27:50 11/30/19 24 11/30/2023 CBC MCHC 32.0 g/dL 32.3-3 6.5 low Not Available [address], [address], 11/30/2023 10:27:50 11/30/19 24 11/30/2023 CBC plt 210 K/? ? ?L 163-33 7 Not Available [address], [address], 11/30/2023 10:27:50 11/30/19 24 11/30/2023 CBC MPV 9.3 fL 9.4-12 .4 low Not Available [address], [address], 11/30/2023 10:27:50 11/30/19 24 11/30/2023 CBC neut% 54.1 % 34.0-6 7.9 Not Available [address], [address], 11/30/2023 10:27:50 11/30/19 24 11/30/2023 CBC neut# 4.26 1.78-5 .38 Not Available [address], [address], 11/30/2023 10:27:50 11/30/19 24 11/30/2023 CBC lymph % 35.7 % 21.8-5 3.1 Not Available [address], [address], 11/30/2023 10:27:50 11/30/19 24 11/30/2023 CBC lymph # 2.81 K/? ? ?L 1.32-3 .57 Not Available [address], [address], 11/30/2023 10:27:50 11/30/19 24 11/30/2023 CBC mono% 6.9 % 5.3-12 .2 Not Available [address], [address], 11/30/2023 10:27:50 11/30/19 24 11/30/2023 CBC mono# 0.54 0.30-0 .82 Not Available [address], [address], 11/30/2023 10:27:50 11/30/19 24 11/30/2023 CBC eo% 2.5 % 0.8-7. 0 Not Available [address], [address], 11/30/2023 10:27:50 11/30/19 24 11/30/2023 CBC eo# 0.20 0.04-0 .54 Not Available [address], [address], 11/30/2023 10:27:50 11/30/19 24 11/30/2023 CBC baso% 0.5 % 0.2-1. 2 Not Available [address], [address], 11/30/2023 10:27:50 11/30/19 24 11/30/2023 CBC baso# 0.04 0.00-0 .08 Not Available [address], [address], 11/30/2023 10:27:50 11/30/19 24 11/30/2023 CBC RDW-CV 15.1 % 11.6-1 4.4 high Not Available [address], [address], 11/30/2023 10:27:50 11/30/19 24 11/30/2023 CBC Ig% 0.300 % 0.000- 1.500 Ig % >0.5 Indic ates possi ble Left Shift Not Available [address], [address], 11/30/2023 10:27:50 11/30/19 24 11/30/2023 CBC Ig# 0.020 0.000- 0.093 Not Available [address], [address], 11/30/2023 10:27:50 11/30/19 24 11/30/2023 CBC NRBC% 0.0 % 0.0-0. 2 Not Available [address], [address], 11/30/2023 10:27:50 11/30/19 24 11/30/2023 CBC NRBC# 0.000 0.000- 0.012 Not Available [address], [address], 11/30/2023 10:27:50 11/30/19 24 11/30/2023 BASIC METAB OLIC PANEL glucose 87 mg/dL 70-100 Not Available [address], [address], 11/30/2023 11:53:57 11/30/19 24 11/30/2023 BASIC METAB OLIC PANEL BUN 12 mg/dL 7-18 Not Available [address], [address], 11/30/2023 11:53:57 11/30/19 24 11/30/2023 BASIC METAB OLIC PANEL creatinine 0.9 mg/dL 0.8-1. 3 Not Available [address], [address], 11/30/2023 11:53:57 11/30/19 24 11/30/2023 BASIC METAB OLIC PANEL B/C 13.3 ratio Not Available [address], [address], 11/30/2023 11:53:57 11/30/19 24 11/30/2023 BASIC METAB OLIC PANEL GFR >=60ML /MIN mL/mi n normal >=60m L/min - Christie l or midly reduc ed <60mL /min- Decre ased kidne y funct ion <15mL /min - Kidne y failu re [facility] calcu lates estim ated Glome rular Filtr ation Rate (eGFR ) using the Chron ic Kidne y Disea se Epide miolo gy Colla borat ion (CKD- EPI) Equat ion (Chance r et. al 2020) as recom davey d by the Natio nal Kidne y Found ation . eGFR is based on age, serum creat inine , and sex. CKD-E PI does not calcu late eGFR by race, does not apply to child thao (age <18 years ), and shoul d not be used in pregn clarence. Not Available [address], [address], 11/30/2023 11:53:57 11/30/19 24 11/30/2023 BASIC METAB OLIC PANEL sodium 140 mmol/ L 136-14 5 Not Available [address], [address], 11/30/2023 11:53:57 11/30/19 24 11/30/2023 BASIC METAB OLIC PANEL potassium 4.5 mmol/ L 3.5-5. 1 Not Available [address], [address], 11/30/2023 11:53:57 11/30/19 24 11/30/2023 BASIC METAB OLIC PANEL chloride 103 mmol/ L 96-107 Not Available [address], [address], 11/30/2023 11:53:57 11/30/19 24 11/30/2023 BASIC METAB OLIC PANEL anion gap 9.5 5.0-15 .0 Not Available [address], [address], 11/30/2023 11:53:57 11/30/19 24 11/30/2023 BASIC METAB OLIC PANEL CO2 28 mmol/ L 21-32 Not Available [address], [address], 11/30/2023 11:53:57 11/30/19 24 11/30/2023 BASIC METAB OLIC PANEL calcium 8.6 mg/dL 8.5-10 .3 Not Available [address], [address], 11/30/2023 11:53:57 11/30/19 24 11/30/2023 LIPID PANEL cholesterol 107 mg/dL <200 mg/dl Rigo able 200-2 39 mg/dl Borde rline High >240 mg/dl High Not Available [address], [address], 11/30/2023 11:53:58 11/30/1911/30/2023 LIPID PANEL triglyceride s 75 mg/dL <150 mg/dL Christie l 150-1 99 mg/dL Borde rline High 200-4 99 mg/dL High >500 mg/dL Very High Not Available [address], [address], 11/30/2023 11:53:58 11/30/19 24 11/30/2023 LIPID PANEL direct HDL 42 mg/dL <40 mg/dl - Major Risk for CHD >60 mg/dl - Negat wilner Risk for CHD Not Available [address], [address], 11/30/2023 11:53:58 11/30/19 24 11/30/2023 URIC ACID uric acid 4.3 mg/dL 3.5-7. 2 Not Available [address], [address], 11/30/2023 11:53:59 11/30/1911/30/2023 LDL - CALCU LATED LDL - calculated 50.0 RISK CATEG ORY LDL GOAL _ CHD or CHD Risk Equiv alent s <100 mg/dl (10-y ear risk >20%) 2+ Risk Facto rs <130 mg/dl (10-y ear risk <= 20%) 0-1 Risk Facto r? <160 mg/dl ? Almos t all peopl e with 0-1 risk facto r have a 10 year risk <10%, thus 10 year risk asses ment in peopl e with 0-1 risk facto r is not neces polo. Not Available [address], [address], 11/30/2023 11:54:00 04/24/19 25 04/26/2024 DRUG SCREE N-8, URINE , WITH CONFI RMATI ON GC/MS amphetamine NEG. negati ve Not Available [address], [address], 04/26/2024 13:46:17 04/24/19 25 04/26/2024 DRUG SCREE N-8, URINE , WITH CONFI RMATI ON GC/MS barbiturates NEG. negati ve Not Available [address], [address], 04/26/2024 13:46:17 04/24/19 25 04/26/2024 DRUG SCREE N-8, URINE , WITH CONFI RMATI ON GC/MS benzodiazepi ne NEG. negati ve Not Available [address], [address], 04/26/2024 13:46:17 04/24/19 25 04/26/2024 DRUG SCREE N-8, URINE , WITH CONFI RMATI ON GC/MS cocaine NEG. negati ve Not Available [address], [address], 04/26/2024 13:46:17 04/24/19 25 04/26/2024 DRUG SCREE N-8, URINE , WITH CONFI RMATI ON GC/MS opiates NEG. negati ve Not Available [address], [address], 04/26/2024 13:46:17 04/24/19 25 04/26/2024 DRUG SCREE N-8, URINE , WITH CONFI RMATI ON GC/MS methadone NEG. negati ve Not Available [address], [address], 04/26/2024 13:46:17 04/24/19 25 04/26/2024 DRUG SCREE N-8, URINE , WITH CONFI RMATI ON GC/MS fentanyl NEG. negati ve Syva EMIT II Limit s of Detec tion (cutt -off value s) [place] Expan d: Amphe tamin es: 1000 ng/ml Opiat es: 300 ng/ml Talisha tuate s: 200 ng/ml Oxyco done 100 ng/ml Benzo diaze pines : 200 ng/ml Metha done 300 ng/ml Cocai ne: 300 ng/ml Fenta nyl 1 ng/ml Not Available [address], [address], 04/26/2024 13:46:17 04/24/19 25 04/26/2024 DRUG SCREE N-8, URINE , WITH CONFI RMATI ON GC/MS oxycodone POS. negati ve GCMS= Sampl e sent to [facility] for confi rmati on by GC/MS . Not Available [address], [address], 04/26/2024 13:46:17 04/24/19 25 04/28/2024 DRUG TOX MONIT ORING OPIAT ES EXPAN DED QN, U codeine NEGATI VE NG/mL <50 See Note 1 [facility] [address], [address], 04/28/2024 13:27:41 04/24/19 25 04/28/2024 DRUG TOX MONIT ORING OPIAT ES EXPAN DED QN, U hydrocodone NEGATI VE NG/mL <50 See Note 1 [facility] [address], [address], 04/28/2024 13:27:41 04/24/19 25 04/28/2024 DRUG TOX MONIT ORING OPIAT ES EXPAN DED QN, U hydromorphon e NEGATI VE NG/mL <50 See Note 1 Not Available [facility] [address], [address], 04/28/2024 13:27:41 04/24/19 25 04/28/2024 DRUG TOX MONIT ORING OPIAT ES EXPAN DED QN, U morphine NEGATI VE NG/mL <50 See Note 1 Not Available [facility] [address], [address], 04/28/2024 13:27:41 04/24/19 25 04/28/2024 DRUG TOX MONIT ORING OPIAT ES EXPAN DED QN, U norhydrocodo ne NEGATI VE NG/mL <50 See Note 1 Not Available [facility] [address], [address], 04/28/2024 13:27:41 04/24/19 25 04/28/2024 DRUG TOX MONIT ORING OPIAT ES EXPAN DED QN, U noroxycodone 989 NG/mL <50 high See Note 1 Not Available [facility] [address], [address], 04/28/2024 13:27:41 04/24/19 25 04/28/2024 DRUG TOX MONIT ORING OPIAT ES EXPAN DED QN, U oxycodone 516 NG/mL <50 high See Note 1 Not Available [facility] [address], [address], 04/28/2024 13:27:41 04/24/19 25 04/28/2024 DRUG TOX MONIT ORING OPIAT ES EXPAN DED QN, U oxymorphone 375 NG/mL <50 high See Note 1 Not Available [facility] [address], [address], 04/28/2024 13:27:41 04/24/19 25 04/28/2024 DRUG TOX MONIT ORING OPIAT ES EXPAN DED QN, U Unknown Analyte See Note 2 Note 1 This test was devel oped and its amber tical perfo rmanc e cathy cteri stics have been deter mined by [facility]. It has not been clear ed or appro osmin by the FDA. This assay has been valid ated pursu ant to the CLIA regul ation s and is used for clini lakia purpo ses. Note 2 This drug testi ng is for medic al treat ment only. Amber sis was perfo rmed as non-f orens ic testi ng and these resul ts shoul d be used only by healt hcare provi ders to rende r diagn osis or treat ment, or to monit or progr ess of medic al condi tions . For darius tance with inter preti ng these drug resul ts, pleas e conta ct a [facility] Toxic ology Speci alist : [phone] ( [phone] ), M-F, 8am-6 pm EST. Not Available [facility] [address] [place] [address] B, [place], [address], 04/28/2024 13:27:41 05/02/1905/02/2024 CBC WBC 8.70 K/? ? ?L 4.23-9 .07 Not Available [address], [address], 05/02/2024 11:04:25 05/02/1905/02/2024 CBC RBC 5.44 M/? ? ?L 4.63-6 .08 Not Available [address], [address], 05/02/2024 11:04:25 05/02/1905/02/2024 CBC HGB 15.2 g/dL 13.7-1 7.5 Not Available [address], [address], 05/02/2024 11:04:25 05/02/1905/02/2024 CBC HCT 46.6 % 40.1-5 1.0 Not Available [address], [address], 05/02/2024 11:04:25 05/02/1905/02/2024 CBC MCV 85.7 fL 79.0-9 2.2 Not Available [address], [address], 05/02/2024 11:04:25 05/02/1905/02/2024 CBC MCH 27.9 pg 25.7-3 2.2 Not Available [address], [address], 05/02/2024 11:04:25 05/02/1905/02/2024 CBC MCHC 32.6 g/dL 32.3-3 6.5 Not Available [address], [address], 05/02/2024 11:04:25 05/02/1905/02/2024 CBC plt 211 K/? ? ?L 163-33 7 Not Available [address], [address], 05/02/2024 11:04:25 05/02/1905/02/2024 CBC MPV 9.4 fL 9.4-12 .4 Not Available [address], [address], 05/02/2024 11:04:25 05/02/1905/02/2024 CBC neut% 64.6 % 34.0-6 7.9 Not Available [address], [address], 05/02/2024 11:04:25 05/02/1905/02/2024 CBC neut# 5.62 1.78-5 .38 high Not Available [address], [address], 05/02/2024 11:04:25 05/02/1905/02/2024 CBC lymph % 27.7 % 21.8-5 3.1 Not Available [address], [address], 05/02/2024 11:04:25 05/02/1905/02/2024 CBC lymph # 2.41 K/? ? ?L 1.32-3 .57 Not Available [address], [address], 05/02/2024 11:04:25 05/02/1905/02/2024 CBC mono% 5.6 % 5.3-12 .2 Not Available [address], [address], 05/02/2024 11:04:25 05/02/1905/02/2024 CBC mono# 0.49 0.30-0 .82 Not Available [address], [address], 05/02/2024 11:04:25 05/02/1905/02/2024 CBC eo% 1.3 % 0.8-7. 0 Not Available [address], [address], 05/02/2024 11:04:25 05/02/1905/02/2024 CBC eo# 0.11 0.04-0 .54 Not Available [address], [address], 05/02/2024 11:04:25 05/02/1905/02/2024 CBC baso% 0.5 % 0.2-1. 2 Not Available [address], [address], 05/02/2024 11:04:25 05/02/1905/02/2024 CBC baso# 0.04 0.00-0 .08 Not Available [address], [address], 05/02/2024 11:04:25 05/02/1905/02/2024 CBC RDW-CV 14.9 % 11.6-1 4.4 high Not Available [address], [address], 05/02/2024 11:04:25 05/02/19 25 05/02/2024 CBC Ig% 0.300 % 0.000- 1.500 Ig % >0.5 Indic ates possi ble Left Shift Not Available [address], [address], 05/02/2024 11:04:25 05/02/19 25 05/02/2024 CBC Ig# 0.030 0.000- 0.093 Not Available [address], [address], 05/02/2024 11:04:25 05/02/19 25 05/02/2024 CBC NRBC% 0.0 % 0.0-0. 2 Not Available [address], [address], 05/02/2024 11:04:25 05/02/19 25 05/02/2024 CBC NRBC# 0.000 0.000- 0.012 Not Available [address], [address], 05/02/2024 11:04:25 05/02/19 25 05/03/2024 COMP. METAB OLIC PANEL glucose 91 mg/dL 70-100 Not Available [address], [address], 05/03/2024 14:06:38 05/02/1905/03/2024 COMP. METAB OLIC PANEL BUN 14 mg/dL 7-18 Not Available [address], [address], 05/03/2024 14:06:38 05/02/19 25 05/03/2024 COMP. METAB OLIC PANEL creatinine 1.0 mg/dL 0.8-1. 3 Not Available [address], [address], 05/03/2024 14:06:38 05/02/19 25 05/03/2024 COMP. METAB OLIC PANEL B/C 14.0 ratio Not Available [address], [address], 05/03/2024 14:06:38 05/02/19 25 05/03/2024 COMP. METAB OLIC PANEL GFR >=60ML /MIN mL/mi n normal >=60m L/min - Christie l or midly reduc ed <60mL /min- Decre ased kidne y funct ion <15mL /min - Kidne y failu re [facility] calcu lates estim ated Glome rular Filtr ation Rate (eGFR ) using the Chron ic Kidne y Disea se Epide miolo gy Colla borat ion (CKD- EPI) Equat ion (Chance r et. al 2020) as recom davey d by the Natio nal Kidne y Found ation . eGFR is based on age, serum creat inine , and sex. CKD-E PI does not calcu late eGFR by race, does not apply to child thao (age <18 years ), and shoul d not be used in pregn clarence. Not Available [address], [address], 05/03/2024 14:06:38 05/02/19 25 05/03/2024 COMP. METAB OLIC PANEL sodium 141 mmol/ L 136-14 5 Not Available [address], [address], 05/03/2024 14:06:38 05/02/19 25 05/03/2024 COMP. METAB OLIC PANEL potassium 4.4 mmol/ L 3.5-5. 1 Not Available [address], [address], 05/03/2024 14:06:38 05/02/19 25 05/03/2024 COMP. METAB OLIC PANEL chloride 104 mmol/ L 96-107 Not Available [address], [address], 05/03/2024 14:06:38 05/02/19 25 05/03/2024 COMP. METAB OLIC PANEL anion gap 9.6 5.0-15 .0 Not Available [address], [address], 05/03/2024 14:06:38 05/02/19 25 05/03/2024 COMP. METAB OLIC PANEL CO2 27 mmol/ L 21-32 Not Available [address], [address], 05/03/2024 14:06:38 05/02/19 25 05/03/2024 COMP. METAB OLIC PANEL calcium 8.8 mg/dL 8.5-10 .3 Not Available [address], [address], 05/03/2024 14:06:38 05/02/19 25 05/03/2024 COMP. METAB OLIC PANEL total protein 7.0 g/dL 6.4-8. 2 Not Available [address], [address], 05/03/2024 14:06:38 05/02/19 25 05/03/2024 COMP. METAB OLIC PANEL albumin 3.9 g/dL 3.4-5. 0 Not Available [address], [address], 05/03/2024 14:06:38 05/02/19 25 05/03/2024 COMP. METAB OLIC PANEL globulin 3.1 g/dL Not Available [address], [address], 05/03/2024 14:06:38 05/02/19 25 05/03/2024 COMP. METAB OLIC PANEL A/G 1.3 ratio 0.8-2. 0 Not Available [address], [address], 05/03/2024 14:06:38 05/02/19 25 05/03/2024 COMP. METAB OLIC PANEL total bilirubin 0.50 mg/dL 0.00-1 .00 Not Available [address], [address], 05/03/2024 14:06:38 05/02/19 25 05/03/2024 COMP. METAB OLIC PANEL AST 18 U/L 0-37 Not Available [address], [address], 05/03/2024 14:06:38 05/02/19 25 05/03/2024 COMP. METAB OLIC PANEL ALT 27 U/L 6-63 Not Available [address], [address], 05/03/2024 14:06:38 05/02/19 25 05/03/2024 COMP. METAB OLIC PANEL alk. phos. 54 U/L 50-136 Not Available [address], [address], 05/03/2024 14:06:38 05/02/19 25 05/03/2024 LIPID PANEL cholesterol 104 mg/dL <200 mg/dl Rigo able 200-2 39 mg/dl Borde rline High >240 mg/dl High Not Available [address], [address], 05/03/2024 14:06:39 05/02/19 25 05/03/2024 LIPID PANEL triglyceride s 60 mg/dL <150 mg/dL Christie l 150-1 99 mg/dL Borde rline High 200-4 99 mg/dL High >500 mg/dL Very High Not Available [address], [address], 05/03/2024 14:06:39 05/02/19 25 05/03/2024 LIPID PANEL direct HDL 46 mg/dL <40 mg/dl - Major Risk for CHD >60 mg/dl - Negat wilner Risk for CHD Not Available [address], [address], 05/03/2024 14:06:39 05/02/19 25 05/03/2024 LDL - CALCU LATED LDL - calculated 46 RISK CATEG ORY LDL GOAL _ CHD or CHD Risk Equiv alent s <100 mg/dl (10-y ear risk >20%) 2+ Risk Facto rs <130 mg/dl (10-y ear risk <= 20%) 0-1 Risk Facto r? <160 mg/dl ? Almos t all peopl e with 0-1 risk facto r have a 10 year risk <10%, thus 10 year risk asses ment in peopl e with 0-1 risk facto r is not nimisha cuellar. Not Available [address], [address], 05/03/2024 14:06:40 Result Notes None recorded. Problems Name Problem SNOMED Code Status Onset Date Resolution Date Notes Provider Name and Address Organization Details Recorded Time Opioid dependen ce 76267707 Active 2018 [facility]SRP medicati ons Not Available [facility] 0 10:39:44 Low back pain 167464803 Active 2019 Not Available [facility] 0 10:39:44 Gout 20387190 Active 2022 Shawn Logan PA-C [address] [place] [address], [id number] [place] [address] 3 09:58:03 Coronary arterios clerosis 37976558 Active 2023 per cardiolo gy note 03/07/24 , inferior STEMI 09/20/23 Marleen Guerra, JOINERY SETTER OUT [facility] 4 18:41:06 Gastroes ophageal reflux disease 969588461 Active 2007 Not Available [facility] 0 10:39:44 Cellulit is and abscess of hand excludin g digits Completed 200306/06/2011 Glendy Todd MD [address] [place] [address], [address] , [facility] 6 09:13:09 Cellulit is and abscess of buttock 848779497 Completed 200606/06/2011 Glendy Todd MD [address] [place] [address], [address] , [facility] 6 09:13:09 Hematoch ezia 776772305 Completed 200106/06/2011 Glendy Todd MD [address] [place] [address], [address] , [facility] 6 09:13:09 Pain of shoulder region 27256573 Completed 200106/06/2011 Glendy Todd MD [address] [place] [address], [address] , [facility] 6 09:13:09 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 Not Available [facility] 0 10:39:44 Divertic ulitis of colon 334153940 Active 2006 Not Available [facility] 0 10:39:44 Acute laryngop haryngit is 46190237 Completed 200106/06/2011 Glendy Todd MD [address] [place] [address], [address] , [facility] 6 09:13:09 Sciatica 26657312 Active 2004 Not Available [facility] 0 10:39:44 Finding by method 471829714 Completed 199906/06/2011 Glendy Todd MD [address] [place] [address], [address] , [facility] 6 09:13:09 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 Not Available [facility] 0 10:39:44 Pneumoni a 808788264 Completed 199906/06/2011 Glendy Todd MD [address] [place] [address], [address] , [facility] 6 09:13:09 Sprain of shoulder and upper arm Completed 200106/06/2011 Glendy Todd MD [address] [place] [address], [address] , [facility] 6 09:13:09 Chronic pain 97079395 Active Not Available [facility] 0 10:39:44 Herpes zoster 8330987 Completed 200406/06/2011 Glendy Todd MD [address] [place] [address], [address] , [facility] 6 09:13:09 Elevated blood-pr essure reading without diagnosi s of hyperten alexandro 132335545 Completed 200706/06/2011 Glendy Todd MD [address] [place] [address], [address] , [facility] 6 09:13:09 Low back pain 883777794 Completed 200207/17/2014 Sasha blanco PA-C [address] [place] [address], [address] , [facility] 0 10:59:00 Backache 997188801 Completed 03/06/2013 Glendy Todd MD [address] [place] [address], [address] , [facility] 6 09:13:09 Noninfec tious gastroen teritis 85584018 Completed 200006/06/2011 Glendy Todd MD [address] [place] [address], [address] , [facility] 6 09:13:09 Problem Notes None recorded. Procedures Surgical History Date Name Laterality Status Provider Name and Address Organization Details Recorded Time 4 Post hospital/SNF follow-up/Trans itional Care completed Emma Keating [facility] 09/27/2023 11:48:31 7 Refraction completed Rosy [facility] 11/28/2016 08:43:07 7 Medicare Wellness Visit completed Harper Iglesias MA [facility] 11/07/2016 08:58:06 Imaging Results None recorded. Procedure Notes None recorded. Medical Equipment None Reported. Allergies No known drug allergies Medications Name Sig Start Date Stop Date Status Note LastModified by Organization Details LastModified Time Prescript ion - Prior Authoriza tion Request 11/07 completed [employer] - Oxycodon e-Acetam inophen Not Available Not Available Not Available atorvasta tin 80 mg tablet TAKE 1 TABLET BY MOUTH EVERY NIGHT AT BEDTIME active Not Available Not Available No t Available tizanidin e 4 mg tablet take 1 tablet by mouth every 8 hours 11/28 completed Not Available Not Available Not Available famotidin e 40 mg tablet TAKE 1 TABLET BY MOUTH EVERY DAY active Not Available Not Available No t Available clopidogr el 75 mg tablet TAKE 1 TABLET BY MOUTH EVERY DAY active Not Available Not Available No t Available aspirin 81 mg tablet,de layed release TAKE 1 TABLET BY MOUTH EVERY DAY 08/01 completed Not Available Not Available Not Available triamcino lone acetonide 0.1 % topical cream APPLY A THIN LAYER TO AFFECTED AREA(S) TOPICALL Y TWICE DAILY active Not Available Not Available No t Available pantopraz ole 20 mg tablet,de layed release TAKE 1 TABLET BY MOUTH DAILY. REPLACES OMEPRAZO LE WHILE TAKING CLOPIDOG REL active increase d to 40mg daily per cardiolo gy note 03/07/24 Not Available Not Available Not Available MS Contin 15 mg tablet,ex tended release Take 1 tablet every day by oral route at bedtime for 28 days. 02/22 completed Not Available Not Available Not Available oxycodone -acetamin ophen 5 mg-325 mg tablet TAKE 2 TABLETS BY MOUTH FOUR TIMES DAILY FOR 28 DAYS active Not Available Not Available No t Available amoxicill in 875 mg tablet TAKE 1 TABLET BY MOUTH TWICE DAILY X 10 DAYS UNTIL FINISHED 08/01 completed finsihed 08/01/24 DS Not Available Not Available Not Available famotidin e 20 mg tablet TAKE 1 TABLET BY MOUTH 01/08 completed never filled. Not Available Not Available Not Available pantopraz ole 40 mg tablet,de layed release TAKE 1 TABLET BY MOUTH EVERY DAY 08/01 completed Not Available Not Available Not Available nortripty line 10 mg capsule 1 hs x 7 than 2 hs 2009 active Not Available Not Available Not Avai lable ferrous sulfate 325 mg (65 mg iron) tablet take 1 tablet by mouth twice a day 03/15 completed pt states not taking 08/24/17 CH. Not Available Not Available Not Available indometha kevin 50 mg capsule TAKE 1 CAPSULE BY MOUTH THREE TIMES DAILY FOR 7 DAYS 08/17 completed 08/17/2022 no longer taking Not Available Not Available Not Available gabapenti n 300 mg capsule TAKE 1 CAPSULE BY MOUTH 1 TO 3 TIMES DAILY NEEDED active Not Available Not Available No t Available omeprazol e 20 mg capsule,d elayed release TAKE 1 CAPSULE BY MOUTH EVERY DAY 01/08 completed pts carido changed to pantopra zole Not Available Not Available Not Available zolpidem 5 mg tablet 1-2 at bedtime prn 2008 active Not Available Not Available Not Avai lable metoprolo l succinate ER 25 mg tablet,ex tended release 24 hr TAKE 1 TABLET BY MOUTH EVERY DAY active Not Available Not Available No t Available polyethyl antonino glycol 3350 17 gram/dose oral powder take 17GM (DISSOLV ED IN WATER) by mouth once daily 03/15 completed 08/24/17 pt states not taking CH. Not Available Not Available Not Available OxyContin 10 mg tablet,ex tended release Take 1 tablet every day by oral route as needed for 28 days. 11/07 completed Not Available Not Available Not Available naproxen 500 mg tablet Take 1 tablet twice a day by oral route with meals for 7 days. 08/17 completed 08/17/2022 no longer taking Not Available Not Available Not Available Asprin Ec Low Dose 81 mg tablet,de layed release Take 1 tablet every day by oral route. active Not Available Not Available No t Available valsartan 40 mg tablet TAKE 1 TABLET BY MOUTH DAILY active Not Available Not Available No t Available Cialis 20 mg tablet Take 1 tablet as needed by oral route. 2009 active Not Available Not Available Not Avai lable pantopraz ole 08/01 completed Not Available Not Available Not Available oxycodone 10 mg tablet TAKE 1 TABLET BY MOUTH ONCE DAILY AT BEDTIME FOR 28 DAYS 10/11 completed Not Available Not Available Not Available Afluria (PF) 45 mcg (15 mcg x 3)/0.5 mL intramusc ular syringe inject 0.5 millilit er intramus cularly active Not Available Not Available No t Available Fluvirin (PF) 45 mcg (15 mcg x3)/0.5 mL intramusc ular syringe inject 0.5 millilit er intramus cularly active Not Available Not Available No t Available OxyContin 10 mg tablet,cr ush resistant ,extended release TAKE 1 TABLET BY MOUTH TWICE DAILY FOR 28 DAYS active Not Available Not Available No t Available Fluvirin (PF) 45 mcg (15 mcg x 3)/0.5 mL IM syringe inject 0.5 millilit er intramus cularly active Not Available Not Available No t Available Narcan 4 mg/actuat ion nasal spray Take by nasal route for suspecte d opioid overdose . [place] 1 mL in one nostril. Repeat after 3 minutes if no or minimal response 2024 active Not Available Not Available Not Avai lable Afluria (PF) 45 mcg(15 mcg x 3)/0.5 mL intramusc ular syringe inject 0.5 millilit er intramus cularly 02/14 completed Not Available Not Available Not Available Afluria (PF) 45 mcg(15 mcg x 3)/0.5 mL intramusc ular syringe inject 0.5 millilit er intramus cularly 02/13 completed Not Available Not Available Not Available Afluria Quad (PF) 60 mcg (15 mcg x 4)/0.5 mL IM syringe inject 0.5 millilit er intramus cularly 03/15 completed Not Available Not Available Not Available Afluria Qd (36 mos up)(PF)60 mcg (15 mcg x4)/0.5 mL IM syringe inject 0.5 millilit ers intramus cularly 02/12 completed Not Available Not Available Not Available Afluria Qd (36 mos up)(PF)60 mcg (15 mcg x4)/0.5 mL IM syringe PHARMACY ADMINIST ERED 05/04 completed Not Available Not Available Not Available Vitals Date Recorded Body height Oxygen saturation Oxygen saturation in Arterial blood by Pulse oximetry Heart rate Body mass index (BMI) Body weight Systolic blood pressure Diastolic blood pressure Provider Name and Address Organization Details Last Updated DateTime 4 173.99 cm 99 % 99 % 77 /min 27.3 kg/m2 76136.5 1 g 114 mm[Hg] 70 mm[Hg] Emma [facility] 4 08:25:49 Date Recorded Body height Body mass index (BMI) Body weight Heart rate Oxygen saturation Oxygen saturation in Arterial blood by Pulse oximetry Systolic blood pressure Diastolic blood pressure Provider Name and Address Organization Details Last Updated DateTime 4 173.99 cm 27 kg/m2 73139.3 3 g 64 /min 99 % 99 % 100 mm[Hg] 60 mm[Hg] Emma [facility] 4 11:53:10 Date Recorded Body height Body mass index (BMI) Body weight Oxygen saturation Oxygen saturation in Arterial blood by Pulse oximetry Heart rate Systolic blood pressure Diastolic blood pressure Provider Name and Address Organization Details Last Updated DateTime 4 173.99 cm 26.9 kg/m2 47612.1 3 g 99 % 99 % 62 /min 104 mm[Hg] 60 mm[Hg] Emma [facility] 4 08:05:08 Date Recorded Body height Body mass index (BMI) Body weight Heart rate Oxygen saturation Oxygen saturation in Arterial blood by Pulse oximetry Systolic blood pressure Diastolic blood pressure Provider Name and Address Organization Details Last Updated DateTime 5 173.99 cm 26.8 kg/m2 28204.0 3 g 65 /min 96 % 96 % 112 mm[Hg] 68 mm[Hg] [facility] 5 08:13:35 Date Recorded Body height Body mass index (BMI) Body weight Oxygen saturation Oxygen saturation in Arterial blood by Pulse oximetry Heart rate Systolic blood pressure Diastolic blood pressure Provider Name and Address Organization Details Last Updated DateTime 5 173.99 cm 25.7 kg/m2 65235.1 g 98 % 98 % 66 /min 106 mm[Hg] 58 mm[Hg] Emma [facility] 04/17/202 5 08:04:17 Social History Question Answer Notes LastModified by Organizat ion Details LastModified Time Tobacco Smoking Status Former Smoker smoked for smoked for 20yrs, smoked 3 cigs daily Deon Cuenca MA [facility] 11/13/2014 08:22:15 Do You Have An Advance Directive? No [email or web address] Information not available 03/03/2011 What Type Of Diet Are You Following? REGULAR [email or web address] Information not available 03/03/2011 Which Illicit Or Recreational Drugs Have You Used? Marijuana Daily [email or web address] Information not available 07/09/2020 Do You Or Have You Ever Used E-cigarettes Or Vape? Never Used Electronic Cigarettes [email or web address] Information not available 07/17/2024 What Is Your Occupation? Disability Information not available 07/17/2014 When Did You Quit Smoking? 16+yearssince lastcigarette Quit At Age 42 [email or web address] Information not available 05/24/2023 How Many Days In The Past Year Have You Had A Heavy Drinking Consumption (4+ Female, 5+ Male)? 0 Information not available 06/30/2016 Live Alone Or With Others? With Others Mother, Brother Information not available 03/21/2013 CSRP - Narcotics Yes DR. MARCH CONTRACT 11/16/2022 NARCOTIC [email or web address] Information not available 03/03/2011 CSRP Contract Signed And Discussed Yes [email or web address] Information not available 03/03/2011 Patient Has Health Care Proxy Signed And In Chart No [email or web address] Information not available 03/03/2011 CSRP - Stimulants No Information not available 11/29/2012 CSRP - Suboxone No Informati on not available 05/18/2015 CCM Consent Discussion 11/18/2021 [email or web address] Information not available 02/18/2022 Marital Status Information not available 03/03/2011 Mosquito Repellent Used Routinely No Information not available 12/03/2018 How Many Children Do You Have? 1 Estranged (son, Grown) [email or web address] Information not available 08/15/2008 What Is Your Current Pack Years? 30ormorepacky ears Information not available 02/19/2015 Seat Belts Used Routinely Yes DBA_PATCH_ 117 Information not available 03/03/2011 Smoke Alarm In Home Yes DBA_PATCH_ 117 Information not available 03/03/2011 How Much Tobacco Do You Smoke? No Information not available 02/19/2015 General Stress Level High Information not available 12/03/2018 Do You Use Any Illicit Or Recreational Drugs? No [email or web address] Information not available 04/24/2024 Do You Or Have You Ever Used Any Other Forms Of Tobacco Or Nicotine? No Information not available 09/01/2023 Sex: Male Functional Status None recorded. Mental Status None recorded. Family History Relationship Description Onset Age of this Age Resolved Age Notes LastModified by Organization Details LastModified Time Father Chronic hepatitis IV drug user tramaine Not available 08/06/2014 19:08:30 Notes:Father-hepatitis B (IV drug)- Medical History Condition Response Chronic Back Pain Y GERD Y Immunizations Vaccine Type Date Status Note Provider Nam e and Address Organization Details Recorded Time Tdap 1 completed Not Available [facility] 05/04/2019 02:15:40 Influenza, split virus, trivalent, preservative 1 completed Not Available [facility] 05/04/2019 02:32:24 Influenza, split virus, trivalent, preservative 2 completed Not Available [facility] 05/04/2019 02:18:33 Influenza, split virus, trivalent, preservative 3 completed Junior Busby RN null, [facility] 12/20/2012 14:18:02 Influenza, split virus, trivalent, preservative 4 completed Not Available [facility] 05/18/2019 02:10:39 influenza, unspecified formulation 9 completed CHRISTINA [place], [facility] 02/12/2019 10:57:35 Td (adult), 2 Lf tetanus toxoid, preservative free, adsorbed 1 completed Angi Sr, DO [address] [place] [address], [place], [address], [facility] 07/09/2020 08:48:04 Influenza, split virus, quadrivalent, preservative 0 [facility] 15:12:58 Influenza, split virus, trivalent, PF 5 [facility] 08:23:00 Influenza, split virus, trivalent, PF 6 [facility] 08:23:00 Influenza, split virus, trivalent, PF 7 [facility] 08:23:00 Influenza, split virus, quadrivalent, PF 8 [facility] 08:23:00 Past Encounters Encounter ID Performer Location Encounter Start Date Encounter Closed Date Diagnosis/Indication Diagnosis SNOMED-CT Code Diagnosis ICD10 Code Diagnosis Note [id number] [facility] , [facility] [address] [place] [address] 03/29/2000 14:00:00 05/07/2008 02:02:29 [id number] Glendy Todd MD , [facility], [address]ICE [address] [place] [address] 08/11/2000 11:15:00 05/07/2008 02:02:29 [id number] Harinder Zarate. , [facility], [address] [place] [address] 03/29/2000 10:00:00 05/07/2008 02:02:29 [id number] Romeo Valera MD , [facility], [address] [place] [address] 10/27/2000 16:15:00 05/07/2008 02:02:29 [id number] Romeo Valera MD , [facility], [address] [place] [address] 05/04/2001 16:30:00 05/07/2008 02:02:29 [id number] Glendy Todd MD , [facility], [address] [place] [address] 08/16/2001 11:00:00 05/07/2008 02:02:29 [id number] [facility] [employer] , [facility] [address] [place] [address] 08/16/2001 11:30:00 05/07/2008 02:02:29 [id number] [facility] - [address] [address] 02/15/2002 10:56:46 05/07/2008 02:02:29 [id number] Glendy Todd MD , [facility], [address] [place] [address] 02/15/2002 10:02:36 05/07/2008 02:02:29 [id number] MD ADALID Hernandez, [facility], [address] [place] [address] 09/26/2002 15:02:40 05/07/2008 02:02:29 [id number] MD ADALID Hernandez, [facility], [address] [place] [address] 11/05/2002 14:20:16 05/07/2008 02:02:29 [id number] [facility] - [address] [address] 07/01/2003 00:00:00 05/07/2008 02:02:29 [id number] MD ADALID Hernandez, [facility], [address] [place] [address] 07/01/2003 11:36:51 07/01/2003 13:09:07 [id number] Romeo Valera MD , [facility], [address] [place] [address] 08/31/2003 09:57:08 09/01/2003 10:24:38 [id number] MD ADALID Hernandez, [facility], [address] [place] [address] 09/09/2003 10:52:21 09/10/2003 09:02:06 [id number] MD ADALID Hernandez, [facility], [address] [place] [address] 09/17/2003 10:54:52 09/18/2003 17:20:40 [id number] MD ADALID Hernandez, [facility], [address] [place] [address] 09/26/2003 11:04:21 09/26/2003 16:31:02 [id number] Glendy Todd MD , [facility], [address] [place] [address] 11/07/2003 14:29:23 11/08/2003 13:39:57 [id number] [facility] - [facility] [address] [place] [address] 11/13/2003 09:53:12 11/13/2003 09:53:19 [id number] Glendy Todd MD , [facility], [address] [place] [address] 02/23/2004 14:47:09 02/24/2004 09:47:59 [id number] Romeo Valera MD , [facility], [address] [place] [address] 06/10/2004 11:07:29 06/11/2004 08:22:34 [id number] Glendy Todd MD , [facility], [address] [place] [address] 06/14/2004 13:36:07 06/15/2004 09:51:06 [id number] Glendy Todd MD , [facility], [address] [place] [address] 06/28/2004 09:08:54 06/30/2004 08:38:31 [id number] Romeo Valera MD , [facility], [address] [place] [address] 11/08/2004 10:00:16 05/07/2008 02:02:29 [id number] Glendy Todd MD , [facility], [address]ICE [address] [place] [address] 11/16/2004 11:02:33 05/07/2008 02:02:29 [id number] Romeo Valera MD , [facility], [address]ICE [address] [place] [address] 11/30/2004 14:19:24 05/07/2008 02:02:29 [id number] MD ADALID Hernandez, [facility], [address] [place] [address] 12/27/2004 15:52:55 05/07/2008 02:02:29 [id number] Nav Rosales , PT Physical Therapy, [facility] [address] [place] [address] 12/31/2004 09:41:52 05/07/2008 02:02:29 [id number] Romeo Valera MD , [facility], [address]ICE [address] [place] [address] 02/22/2005 14:36:54 02/22/2005 14:37:11 [id number] Glendy Todd MD , [facility], [address] [place] [address] 07/01/2005 14:19:46 07/04/2005 09:26:43 [id number] Glendy Todd MD , [facility], [address]ICE [address] [place] [address] 10/21/2005 16:05:17 05/07/2008 02:02:29 [id number] Romeo Valera MD , [facility], [address]ICE [address] [place] [address] 12/05/2005 13:21:22 12/05/2005 13:43:26 [id number] Romeo Valera MD , [facility], [address]ICE [address] [place] [address] 12/12/2005 11:30:17 12/12/2005 16:38:11 [id number] Glendy Todd MD , [facility], [address] [place] [address] 12/21/2005 14:47:14 12/22/2005 08:23:30 [id number] Glendy Todd MD , [facility], [address] [place] [address] 03/20/2006 13:19:31 03/21/2006 08:49:25 [id number] Glendy Todd MD , [facility], [address] [place] [address] 09/18/2006 11:49:07 09/18/2006 15:47:49 [id number] Glendy Todd MD , [facility], [address] [place] [address] 6 01/30/2007 09:20:52 05/07/2008 02:02:29 [id number] MD ADALID Hernandez, [facility], [address] [place] [address] 02/26/2007 12:05:08 05/07/2008 02:02:29 [id number] Glendy Todd MD , [facility], [address] [place] [address] 03/05/2007 09:53:43 05/07/2008 02:02:29 [id number] Glendy Todd MD , [facility], [address] [place] [address] 08/10/2007 13:29:09 05/07/2008 02:02:29 [id number] Glendy Todd MD , [facility], [address]ICE [address] [place] [address] 11/21/2007 13:37:19 05/07/2008 02:02:29 [id number] [facility] - [address] [address] 11/21/2007 14:38:06 11/21/2007 14:38:15 [id number] [facility] - [address] [address] 11/21/2007 00:00:00 05/07/2008 02:02:29 [id number] Denise Gandhi NP , [facility], [address] [place] [address] 08/15/2008 11:25:13 08/21/2008 09:19:37 [id number] [facility] - [address] [address] 05/16/2008 12:55:34 05/16/2008 12:55:45 [id number] [facility] - [address] [address] 05/16/2008 00:00:00 02/12/2009 02:00:52 [id number] [facility] - [address] [address] 08/15/2008 12:38:49 08/15/2008 12:38:57 [id number] MD ADALID Hernandez, [facility], [address]ICE [address] [place] [address] 03/02/2009 11:41:37 03/03/2009 14:48:11 [id number] MD ADALID Hernandez, [facility], [address] [place] [address] 07/24/2009 14:15:38 07/24/2009 15:53:26 [id number] Glendy Todd MD , [facility], [address]ICE [address] [place] [address] 02/10/2010 13:32:31 02/10/2010 17:49:30 [id number] Glendy Todd MD , [facility], [address] [place] [address] 04/13/2010 11:39:19 04/20/2010 10:42:05 [id number] Glendy Todd MD , [facility], [address]ICE [address] [place] [address] 07/06/2010 10:52:15 07/23/2010 13:17:52 [id number] Glendy Todd MD , [facility], [address] [place] [address] 10/06/2010 11:05:12 10/06/2010 12:22:12 [id number] Glendy Todd MD , [facility], [address] [place] [address] 01/06/2011 11:26:12 01/06/2011 12:15:12 [id number] Glendy Todd MD , [facility], [address]ICE [address] [place] [address] 03/15/2011 11:43:48 03/15/2011 12:35:47 [id number] Glendy Todd MD , [facility], [address] [place] [address] 06/06/2011 11:29:46 06/06/2011 12:04:34 [id number] Glendy Todd MD , [facility], [address]ICE [address] [place] [address] 08/29/2011 10:26:23 08/29/2011 11:07:19 [id number] Lisbeth Nguent, PT Physical Therapy, [address] [place] [address] 10/05/2011 13:56:49 10/10/2011 12:10:11 [id number] Lisbeth Nugent PT Physical Therapy, [address] [place] [address] 10/07/2011 14:57:08 10/10/2011 08:16:05 [id number] Lisbeth Nugent PT Physical Therapy, [address] [place] [address] 10/11/2011 14:27:11 10/11/2011 15:27:55 [id number] Lisbeth Nugent, PT Physical Therapy, [address] [address] 10/14/2011 10:03:12 10/14/2011 14:33:45 [id number] MD ADALID Hernandez, [facility], [address]ICE [address] [place] [address] 11/30/2011 10:47:24 11/30/2011 11:30:01 [id number] MD ADALID Hernandez, [facility], [address] [place] [address] 02/29/2012 11:35:02 02/29/2012 12:13:21 [id number] Glendy Todd MD , [facility], [address] [place] [address] 06/01/2012 14:00:34 06/01/2012 15:49:05 [id number] Glendy Todd MD , [facility], [address] [place] [address] 08/30/2012 11:08:46 08/30/2012 11:55:11 [id number] Glendy Todd MD , [facility], [address] [place] [address] 11/29/2012 11:05:24 11/29/2012 11:44:58 Chronic pain 99679991 Low back pain 692054056 [id number] MD ADALID Hernandez, [facility], [address] [place] [address] 02/01/2013 11:51:06 02/01/2013 13:35:54 Backache [id number] [id number] MD ADALID Hernandez, [facility], [address] [place] [address] 03/21/2013 10:11:21 03/21/2013 11:23:11 Adult health examination [id number] see Risk Assessment and Lifestyle Change Counseling section above Counseling 456784261 Chronic pain 94597081 Mixed hyperlipidemia 975800703 [id number] MD ADALID Hernandez, [facility], [address] [place] [address] 06/20/2013 11:21:45 06/20/2013 11:58:37 Chronic pain 18876468 [id number] Glendy Todd MD , [facility], [address] [place] [address] 07/08/2013 13:54:33 07/09/2013 11:13:52 Low back pain [id number] Glendy Todd MD , [facility], [address] [place] [address] 09/20/2013 13:52:44 09/20/2013 14:33:58 Chronic pain 29885078 Anemia 948672767 Low back pain 535210197 [id number] Glendy Todd MD , [facility], [address]ICE [address] [place] [address] 10/17/2013 09:22:40 10/17/2013 13:05:18 Anemia 706975067 [id number] Glendy Todd MD [facility] [address] [place] [address] 10/22/2013 09:59:28 10/22/2013 10:00:39 [id number] Glendy Todd MD , [facility], [address] [place] [address] 01/03/2014 09:22:01 01/03/2014 10:09:05 Chronic pain 99624124 Anemia 149071072 Iron deficiency 97155304 Low back pain 878691566 [id number] Glendy Todd MD , [facility], [address] [place] [address] 03/18/2014 09:11:41 03/18/2014 10:17:21 Chronic pain 37490888 Low back pain 752204081 [id number] Glendy Todd MD , [facility], [address] [place] [address] 03/20/2014 08:44:25 03/20/2014 10:32:24 Eruption [id number] Glendy Todd MD , [facility], [address] [place] [address] 07/17/2014 08:58:10 07/17/2014 09:50:26 Adult health examination 439847089 see Risk Assessment and Lifestyle Change Counseling section above Counseling 423183147 Chronic pain 83549756 Eruption 264873629 Gastroesop hageal reflux disease 491686999 [id number] Glendy Todd MD , [facility], [address] [place] [address] 09/15/2014 11:59:16 09/16/2014 08:32:33 Adult health examination 461308126 see Risk Assessment and Lifestyle Change Counseling section above Counseling 140013692 Chronic pain 60041229 Backache 108635117 Gastroesop hageal reflux disease 139821651 [id number] Glendy Todd MD , [facility], [address] [place] [address] 11/13/2014 08:14:55 11/13/2014 08:41:07 Chronic pain 55150882 Low back pain 568534596 [id number] Glendy Todd MD , [facility], [address] [place] [address] 02/19/2015 09:53:31 02/19/2015 10:23:36 Chronic pain 44743346 R52 Low back pain 681145877 M54.5 [id number] Glendy Lugo MD , [facility], [address] [place] [address] 04/26/2015 09:42:18 04/26/2015 09:56:36 Pain of wrist region 99622029 M25.976 [id number] Glendy Todd MD , [facility], [address] [place] [address] 05/18/2015 09:09:50 05/18/2015 09:53:44 Chronic pain 85755424 R52 Backache 159030401 M54.9 Low back pain 145257509 M54.5 Long-term drug therapy 048493827 Z79.322 [id number] Glendy Todd MD , [facility], [address] [place] [address] 07/27/2015 08:52:51 07/27/2015 09:40:08 Adult health examination 631920052 Z00.00 see Risk Assessment and Lifestyle Change Counseling section above Counseling 350812456 Z71 .9 Chronic pain 42399682 R5 2 Sciatica 36304962 M54.30 Gastroesop hageal reflux disease 212011782 K21.9 [id number] Glendy Todd MD , [facility], [address] [place] [address] 11/19/2015 09:27:18 11/19/2015 09:52:58 Chronic pain 42833994 R52 Idiopathic peripheral autonomic neuropathy 13696652 G90.09 Sciatica 75664174 M54.30 [id number] Glendy Todd MD , [facility], [address] [place] [address] 02/15/2016 07:50:56 02/15/2016 08:22:56 Sciatica 91205725 M54.30 Idiopathic peripheral autonomic neuropathy 78071260 G90.09 Chronic pain 50068030 R5 2 Anemia 486781812 D64.9 Dyspnea 706266724 R06.01 [id number] Glendy Todd MD , [facility], [address] [place] [address] 04/05/2016 13:40:11 04/06/2016 10:19:46 Sciatica 97069590 M54.30 [id number] Glendy Todd MD , [facility], [address] [place] [address] 06/30/2016 08:29:08 06/30/2016 09:00:48 Chronic pain 35546874 R52 Opioid dependence 096737 00 F11.20 Sciatica 27692203 M54.30 Idiopathic peripheral autonomic neuropathy 29661100 G90.09 [id number] Glendy Todd MD , [facility], [address] [place] [address] 11/07/2016 08:51:29 11/07/2016 09:26:48 Adult health examination 572085997 Z00.00 see risk assesment and counseling section Sciatica 50748060 M54.30 Gastroesop hageal reflux disease 284961250 K21.9 Chronic pain 69538646 R5 2 Idiopathic peripheral autonomic neuropathy 46319617 G90.09 Anemia 941938006 D64.9 [id number] Silva Bullard, [facility], [facility] [address] [place] [address] 11/28/2016 08:27:46 11/28/2016 09:23:23 Presbyopia 37176143 H52.4 no change in glasses rx. Incipient cataract 01642 005 H25.093 minimal haze OU; pt ed, not visually signicant, monitor 1-2 yrs CEE or prn [id number] MD ADALID Hernandez, [facility], [address] [place] [address] 02/13/2017 08:20:26 02/13/2017 08:46:09 Sciatica 62822743 M54.30 Chronic pain 33242961 R5 2 Idiopathic peripheral autonomic neuropathy 50350100 G90.09 Anemia 891092746 D64.9 [id number] Glendy Todd MD , [facility], [address] [place] [address] 05/15/2017 11:37:54 05/15/2017 12:33:13 Chronic pain 25233962 R52 Idiopathic peripheral autonomic neuropathy 70484276 G90.09 Sciatica 11711927 M54.30 Iron defic iency anemia 53569754 D50.9 Gastroesop hageal reflux disease 816294662 K21.9 [id number] MD ADALID Hernandez, [facility], [address] [place] [address] 08/24/2017 09:20:03 08/25/2017 09:29:17 Chronic pain 28344566 R52 Opioid dependence 137891 00 F11.20 [id number] Glendy Todd MD , [facility], [address] [place] [address] 11/27/2017 08:53:06 11/27/2017 09:48:59 Adult health examination 043395272 Z00.00 see Risk Assessment and Lifestyle Change Counseling section above Counseling 007262830 Z71 .9 Depression screening 171 935186 Z13.89 depression screening tool administer ed, entered into emr, scored and discussed, time greater than 7.5 minutes Chronic pain 70786346 R5 2 Opioid dependence 877456 00 F11.20 Diverticul itis of colon 321703206 K57.32 Sciatica 93780264 M54.30 Gastroesop hageal reflux disease 992734381 K21.9 Idiopathic peripheral autonomic neuropathy 38964185 G90.09 Anemia 748357216 D64.9 [id number] MD ADALID Hernandez, [facility], [address] [place] [address] 03/15/2018 13:21:19 03/15/2018 13:51:22 Chronic pain 84760973 R52 Opioid dependence 081433 00 F11.20 Sciatica 96725762 M54.30 Idiopathic peripheral autonomic neuropathy 00831537 G90.09 Gastroesop hageal reflux disease 638991538 K21.9 [id number] Glendy Todd MD , [facility], [address] [place] [address] 06/07/2018 09:26:04 06/07/2018 09:56:48 Long-term drug therapy 108931309 Z79.899 Attention deficit hyperactivity disorder, 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 Chronic pain 03383366 R5 2 Opioid dependence 140030 00 F11.20 Idiopathic peripheral autonomic neuropathy 22514124 G90.09 Sciatica 96574671 M54.30 [id number] Glendy Todd MD , [facility], [address] [place] [address] 10/22/2018 08:21:12 10/22/2018 10:35:12 Chronic pain 15219835 R52 Opioid dependence 834194 00 F11.20 Idiopathic peripheral autonomic neuropathy 03020616 G90.09 Sciatica 81599360 M54.30 [id number] Glendy Todd MD , [facility], [address] [place] [address] 12/03/2018 08:51:01 12/03/2018 11:14:44 Adult health examination 680424750 Z00.00 see Risk Assessment and Lifestyle Change Counseling section above Counseling 301920385 Z71 .9 Depression screening 171 197396 Z13.89 depression screening tool administer ed, entered into emr, scored and discussed, time greater than 7.5 minutes Screening for malignant neoplasm of colon 999649044 Z12.11 Referral for a DIRECT booked colonoscop y. This patient is a healthy ASA Class 1 or 2 patient (only mild systemic disease), or a STABLE, well controlled insulin dependent diabetic. They do not have serious cardiac disease ie HI/angiopl asty within 1 year, symptomati c CHF; renal failure with CKD 4 or 5; take Coumadin, Plavix, Aggrenox, etc. Chronic pain 10510517 R5 2 Idiopathic peripheral autonomic neuropathy 66562913 G90.09 Diverticul itis of colon 477912479 K57.32 Sciatica 75539008 M54.30 Gastroesop hageal reflux disease 952287001 K21.9 [id number] Glendy Todd MD , [facility], [address] [place] [address] 02/12/2019 10:38:47 02/12/2019 11:22:31 Chronic pain 68721611 R52 Opioid dependence 153796 00 F11.20 Smoker 63934543 F17.210 Ex-smoker 4538172 Z87.89 1 Sciatica 93317457 M54.30 Idiopathic peripheral autonomic neuropathy 97969138 G90.09 [id number] Darwin Bryan MD , [facility], [address] [place] [address] 05/13/2019 07:36:28 05/13/2019 08:02:18 Chronic pain 25442838 R52 Opioid dependence 044878 00 F11.20 Gastroesop hageal reflux disease 691497873 K21.9 Left upper quadrant pain 244493318 R10.12 [id number] Darwin Bryan MD , [facility], [address] [place] [address] 08/12/2019 08:54:07 08/12/2019 11:11:02 Chronic pain 93951380 R52 Gastroesop hageal reflux disease 672235621 K21.9 [id number] Jarvis Cabrera MD , [facility], [address] [place] [address] 10/14/2019 10:23:41 10/17/2019 12:26:26 Pain of hip region 83687314 M25.559 1 wk hx of R sided non traumatic hip painPt does not think its related to his backWill obtain XRIn office/ten t visit tomorrow, r/o troch bursitis.a dvised OTC Ibuprofen, ice for now Low back pain 202377118 M54.5 chronic , longstandi ngon CSRP for pain management [id number] Jarvis Cabrera MD , [facility], [address] [place] [address] 10/15/2019 09:33:42 10/17/2019 15:38:57 Leg swelling symptom 033370631 M79.89 non-trauma tic left upper lateral thigh, localized tender massinitia lly pt reported less pain, now hurting again, wonders if its enlargingX R of hip shows ? of troch bursitis , no bony abnormalit yConsulted with Dr Kruse; since symptoms are worsening now, will proceed w. soft tissue U/S and SM consult tomorrow [id number] Darwin Bryan MD , [facility], [address] [place] [address] 12/30/2019 08:34:32 12/30/2019 15:46:59 Pain of right hip joint 9089133992 92880 M25.551 Chronic pain 79335245 R5 2 Gastroesop hageal reflux disease 478883045 K21.9 Opioid dependence 203350 00 F11.20 [id number] Darwin Bryan MD , [facility], [address] [place] [address] 05/04/2020 07:37:41 05/05/2020 09:47:42 Chronic pain 88185163 R52 Opioid dependence 193490 00 F11.20 Low back pain 609798421 M54.5 [id number] Angi Sr DO , [facility], [address] [place] [address] 07/09/2020 08:15:47 07/09/2020 14:22:31 Active or passive immunization 456429422 Z23 Diplopia 80960469 H53.2 Will send to optho and neuro-opth o- needs MRI brain to eval further. Pt advised to go to ED if red flag symptoms develop such as facial drooping, difficulty speaking/s wallowing, weakness, numbness/t ingling or other vision changes occur. Pt agrees with plan. Left devia tion of uvula 170604404 K13.79 Not previously recorded in recent year's notes. Unclear if new or chronic though patient denying swallowing /speaking difficulti es. Multiple a ctinic keratoses 431009767 L57.0 Referred to dermatolog y- too many to cryo-treat in office. [id number] Darwin Bryan MD , [facility], [address] [place] [address] 08/04/2020 08:09:35 08/04/2020 08:44:56 Diplopia 14690070 H53.2 Opioid dependence 938742 00 F11.20 Gastroesop hageal reflux disease [id number] K21.9 Adult heal th examination 496011477 Z00.00 [id number] Darwin Bryan MD , [facility], [address] [place] [address] 11/03/2020 08:39:11 11/03/2020 09:10:39 Long-term drug therapy 105982973 Z79.899 Chronic pain 88170232 R5 2 Low back pain 780784207 M54.5 Opioid dependence 336985 00 F11.20 Diplopia 95123665 H53.2 Vaccine de clined by patient [id number] 02 Z28.21 [id number] Darwin Bryan MD , [facility], [address] [place] [address] 02/08/2021 08:40:22 02/10/2021 14:28:28 Long-term drug therapy [id number] Z79.899 Low back pain 970676497 M54.50 [id number] Darwin Bryan MD , [facility], [address] [place] [address] 05/20/2021 08:53:49 05/24/2021 16:08:22 Long-term drug therapy 204066644 Z79.899 Chronic pain [id number] R5 2 Adult heal th examination 810993499 Z00.00 [id number] Darwin Bryan MD , [facility], [address] [place] [address] 08/19/2021 07:58:06 08/20/2021 08:18:15 Chronic pain 09826062 R52 Long-term current use of opiate analgesic drug [id number] 93773 Z79.891 Ophthalmic migraine 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 [id number] Darwin Bryan MD , [facility], [address] [place] [address] 11/18/2021 08:52:31 11/18/2021 09:23:56 Chronic pain 85275258 R52 Long-term current use of opiate analgesic drug 6519222501 82718 Z79.891 Long-term current use of drug therapy 641861838 Z79.899 Sciatica 73490586 M54.31 [id number] MD ADALID Hunter, [facility], [address] [place] [address] 03/01/2022 08:39:42 03/01/2022 10:17:39 Opioid dependence 68216002 F11.20 Chronic pain 25442751 R5 2 Gastroesop hageal reflux disease 041956864 K21.9 [id number] Darwin Bryan MD , [facility], [address] [place] [address] 06/08/2022 08:22:24 06/08/2022 09:21:40 Long-term drug therapy 527237669 Z79.899 Vaccination not done 592 7129060 9108 Z28.29 Patient declined the covid, flu vaccine at this time. Opioid dependence 495244 00 F11.20 Chronic pain 18677500 R5 2 Chronic back and hip pain stable. He recently weaned off and stopped Oxycontin in 03/08. He is now ready to work on slow weaning of Percocet. I rec'd reducing by 1 tablet/day each month over the next 8 months. He will consider this plan. New contract signed today with mo. [id number] Darwin Bryan MD , [facility], [address] [place] [address] 07/13/2022 09:37:00 07/13/2022 10:38:06 [facility] 17318929 M10.9 Discussed etiology and mgmt.F/U for worsening or failure to improve within 5-7 days. [id number] Darwin Bryan MD , [facility], [address] [place] [address] 08/17/2022 08:09:41 08/17/2022 09:13:34 Chronic pain 10546160 R52 Chronic back and hip pain stable. He weaned off and stopped Oxycontin in 03/08.He is considerin g slow weaning of Percocet. I rec'd reducing by 1 tablet/day each month over the next 8 months. He will consider this plan. Long-term current use of opiate analgesic drug 0368017024 94122 Z79.891 Opioid dependence 884567 00 F11.20 [id number] Evin March MD , [facility], [address] [place] [address] 11/16/2022 09:23:48 11/16/2022 17:15:48 Chronic pain 21466472 R52 Chronic painExplai yamil in detail regarding the etiology of chronic pain along with its associated risks and discussed treatment options.Co ntinue with current medical management .We talked about gradually reducing the oxycodone 2 tablet 4 times daily dose by 0.5 tablet per day every month.Enco uraged to exercise regularly. This note has been generated by Radha MELARA and edited by Joel Trejo Quality Documentat ion Specialist . Long-term current use of opiate analgesic drug 7609839714 59186 Z79.891 Gastroesop hageal reflux disease 221276845 K21.9 on omeprazole discussed trying to reduce or switch to pepcid Idiopathic peripheral autonomic neuropathy 69583597 G90.09 chronic no change [id number] Evin March MD , [facility], [address] [place] [address] 03/07/2023 08:09:31 03/07/2023 14:34:17 Adult health examination 075148098 Z00.00 Depression screening 171 547805 Z13.31 depression screening tool administer ed Screening for alcohol abuse 475274357 Z13.39 Alcohol use screening tool administer ed Screening for malignant neoplasm of prostate 493124303 Z12.5 PSA testing for ages 55-69 risks and benefits discussed {{patient declines testing te st ordered}}. Chronic pain 10911486 R5 2 Chronic painExplai yamil in detail regarding the etiology of chronic pain along with its associated risks and discussed treatment options.Co ntinue with current medical management .We talked about gradually reducing the oxycodone 2 tablet 4 times daily dose by 0.5 tablet per day every month.Enco uraged to exercise regularly. This note has been generated by Radha MELARA and edited by Teo Laguna Documentat ion Specialist . Chronic painContin ue with current medical management . This note has been generated by Radha MELARA and edited by Jacobo Brush Quality Documentat ion Specialist . Long-term current use of opiate analgesic drug 9002642921 43024 Z79.891 Mixed hyperlipidemia 267 997162 E78.2 Hyperlipid emiaExplai yamil in detail regarding the etiology of elevated cholestero l along with its associated risks and discussed treatment options.En couraged on staying physically active and losing weight.Enc ouraged to eat healthy and avoid fatty foods, fried foods, butter, cheese, red meats, hamburger, and steak.Enco uraged to maintain a goal weight of 180 pounds. Diabetes gretchen prabhakar screening 253295582 Z13.1 [id number] Evin March MD , [facility], [address] [place] [address] 05/24/2023 08:08:25 05/24/2023 12:23:03 Chronic pain 93275738 R52 Chronic painExplai yamil in detail regarding the etiology of chronic pain along with its associated risks and discussed treatment options.Co ntinue with current medical management .We talked about gradually reducing the oxycodone 2 tablet 4 times daily dose by 0.5 tablet per day every month.Enco uraged to exercise regularly. This note has been generated by Radha MELARA and edited by Joel Trejo, Quality Documentat ion Specialist . Chronic painContin ue with current medical management . This note has been generated by Radha MELARA and edited by Jacobo Brush Quality Documentat ion Specialist . Long-term current use of opiate analgesic drug 1864698995 23749 Z79.891 Vaccination not done 137 0233466 9108 Z28.9 pt does not want shingles or flu vac Low back pain 712225102 M54.50 Back painContin ue oxycodone 5 mg 2 tablets 4 times a day. Gastroesop hageal reflux disease without esophagitis 617051282 K21.9 Acid refluxExpl ained in detail regarding the etiology of acid reflux along with its associated risks and discussed treatment options.En couraged to take Pepcid for 1 to 2 weeks and then discontinu e it.Encoura ged to avoid fried, fatty, cheese, and butter. This note has been generated by Radha MELARA and edited by Md Madhavi Treadwell, Quality Documentat ion Specialist . Mixed hyperlipidemia 267 826215 E78.2 Hyperlipid emiaExplai yamil in detail regarding the etiology of elevated cholestero l along with its associated risks and discussed treatment options.En couraged on staying physically active and losing weight.Enc ouraged to eat healthy and avoid fatty foods, fried foods, butter, cheese, red meats, hamburger, and steak.Enco uraged to maintain a goal weight of 180 pounds. [id number] Evin March MD , [facility], [address] [place] [address] 09/01/2023 08:06:55 09/01/2023 08:49:21 Long-term current use of opiate analgesic drug 0436400105 25040 Z79.891 stable continue meds Opioid dependence 480992 00 F11.20 continues on conrtract Low back pain 632808823 M54.50 Back painContin ue oxycodone 5 mg 2 tablets 4 times a day. Mixed hyperlipidemia 267 013229 E78.2 Hyperlipid emiaExplai yamil in detail regarding the etiology of elevated cholestero l along with its associated risks and discussed treatment options.En couraged on staying physically active and losing weight.Enc ouraged to eat healthy and avoid fatty foods, fried foods, butter, cheese, red meats, hamburger, and steak.Enco uraged to maintain a goal weight of 180 pounds. [id number] Evin March MD , [facility], [address] [place] [address] 09/27/2023 11:23:31 10/05/2023 12:42:[address] segment elevation myocardial infarction 115570961 I21.3 s/p stent doing well on med discussed slowly increasing activity and will discuss cardiac rehab with cardiology next week [id number] Evin March MD , [facility], [address] [place] [address] 12/06/2023 07:52:54 12/06/2023 17:39:25 Chronic pain 81613600 R52 Chronic painExplai yamil in detail regarding the etiology of chronic pain along with its associated risks and discussed treatment options.Co ntinue with current medical management .We talked about gradually reducing the oxycodone 2 tablet 4 times daily dose by 0.5 tablet per day every month.Enco uraged to exercise regularly. This note has been generated by Radha MELARA and edited by Joel Trejo Quality Documentat ion Specialist . Chronic painContin ue with current medical management . This note has been generated by Radha MELARA and edited by Jacobo Brush, Quality Documentat ion Specialist . Long-term current use of opiate analgesic drug 1359133204 99148 Z79.891 stable continue meds Low back pain 115427446 M54.50 Back painContin ue oxycodone 5 mg 2 tablets 4 times a day. Coronary arteriosclerosis 04929138 I25.10 see above [id number] Evin March MD , [facility], [address] [place] [address] 04/24/2024 07:49:39 04/24/2024 08:44:59 Long-term current use of drug therapy 433264494 Z79.899 Gastroesop hageal reflux disease without esophagitis 538916805 K21.9 Acid refluxExpl ained in detail regarding the etiology of acid reflux along with its associated risks and discussed treatment options.En couraged to take Pepcid for 1 to 2 weeks and then discontinu e it.Encoura ged to avoid fried, fatty, cheese, and butter. This note has been generated by Radha MELARA and edited by Md Madhvai Treadwell, Quality Documentat ion Specialist . Mixed hyperlipidemia 267 318369 E78.2 Hyperlipid emiaExplai yamil in detail regarding the etiology of elevated cholestero l along with its associated risks and discussed treatment options.En couraged on staying physically active and losing weight.Enc ouraged to eat healthy and avoid fatty foods, fried foods, butter, cheese, red meats, hamburger, and steak.Enco uraged to maintain a goal weight of 180 pounds. Essential hypertension 03840725 I10 History of myocardial infarction 722937179 I25.2 [id number] MD ADALID Kelley, [facility], [address] [place] [address] 08/01/2024 07:53:34 08/06/2024 09:02:26 Chronic pain 72220322 R52 Chronic painExplai yamil in detail regarding the etiology of chronic pain along with its associated risks and discussed treatment options.Co ntinue with current medical management .We talked about gradually reducing the oxycodone 2 tablet 4 times daily dose by 0.5 tablet per day every month.Enco uraged to exercise regularly. This note has been generated by Radha MELARA and edited by Joel Trejo, Quality Documentat ion Specialist . Chronic painContin ue with current medical management . This note has been generated by Radha MELARA and edited by Jacobo Brush, Quality Documentat ion Specialist . Long-term current use of opiate analgesic drug 8595825548 22037 Z79.891 stable continue meds Screening for malignant neoplasm of colon 246110126 Z12.11 Coronary arteriosclerosis 57083381 I25.10 see above Gastroesop hageal reflux disease 798581503 K21.9 on omeprazole discussed trying to reduce or switch to pepcid Health Concerns Section Related Observation LastModified by Organization Detai ls LastModified Time None Recorded Concern Status LastModified by Organization Details LastModified Time None Recorded Advance Directives Directive N: Payers Encounter Date Sequence Insurance Name Policy Number Policy Morejon Covered Member ID Morejon Member ID Guarantor Name 09/01/2023 1 [place] [employer] Gibson A Downer [id number] Gibson A Downer 09/27/2023 1 [place] [employer] Gibson A Downer [id number] Gibson A Downer 12/06/2023 1 [place] [employer] Gibson A Downer [id number] Gibson A Downer 04/24/2024 1 [place] [employer] Gibson A Downer [id number] 5 Gibson A Downer 08/01/2024 1 [place] [employer] Gibson A Downer [id number] 5 Gibson A Downer Notes Date Note Type Note Provider Name and Address Organization Details Recorded Time 4 text/html MM pt also mentions feeling heart palpitationsThe patient is a 63-year-old male who presents for evaluation of multiple medical concerns.The patient reports persistent reflux symptoms, for which he is attempting to discontinue omeprazole.The patient experiences intermittent mild chest discomfort, which he describes as shock-like. These episodes occur daily, ranging from 45 to 47 times on one day to 15 to 16 times on other days. The onset of these episodes coincide with the initiation of his treadmill exercise, but not during workouts. He expresses concern about the potential for a heart attack, muscular issues, or stress. He denies experiencing dizziness, lightheadedness, or chest pressure during these episodes. Despite these symptoms, he maintains an active lifestyle, albeit cautious due to a recent back injury. He has been on opioids for approximately 15 years, which effectively manage the sharp pain. However, he anticipates a period of 1 to 2 months of crutch use during physical activity.The patient has been making efforts to reduce his consumption of processed foods. Evin March MD [address] [place] [address], [phone], [facility] 09/01/2023 08:58:45 4 text/html Hosp F/U stent placed The patient is a 63-year-old male who presents for evaluation of multiple medical concerns.The patient experienced a transient tingling sensation in the posterior aspect of his arm and increasing chest pain , which prompted him to seek medical attention at [facility] at 7:00 AM. Subsequently, he was transferred to [facility] where a cardiac catheterization was performed, revealing a tight area. Subsequent stent placement was performed. Post-procedure, he experienced diaphoresis in his neck and head, which persisted until last night. He speculated that his symptoms may be related to his medication regimen, as he began his medications and taking them approximately 3 hours apart during the day. Since his discharge, he has experienced episodes of diarrhea, but currently, he does not experience sweating. He also reports stiffness and achiness in his arm, which appears to be discolored. He was discharged with aspirin, clopidogrel, metoprolol, and atorvastatin. His current medications include oxycodone and omeprazole for reflux. He usually maintains an active lifestyle, but has not worked out since his discharge. His diet includes a significant amount of fruits, vegetables, and whole grains, and he consumes cookies and ice cream nightly. He has a scheduled appointment with his apartment maintenance supervisor next Monday. Evin March MD [address] [place] [address], [phone], [facility] 10/03/2023 19:29:37 4 text/html MMThe patient is a 63-year-old male who presents for an ongoing care appointment.He experienced a heart attack on 09/20/2023, which led to the placement of a stent in the lower part of his heart. Post-attack, he has been actively participating in rehabilitation exercises, both at the facility and at home, without experiencing any chest pain or shortness of breath. Occasionally, he experiences chest pressure, which he reported during his last visit to the apartment maintenance supervisor. He has concerns about potential clogging of his stent. His current medications include aspirin, clopidogrel, atorvastatin, metoprolol, and valsartan. He was prescribedlisinoprildue to a perceived weakness in the lower part of his heart. Despite having exercise equipment at home, he prefers to exercise under the supervision of a nurse.He occasionally experiences dizziness upon standing up and is unsure if this is related to his blood pressure. He admits to not drinking enough water. He recalls feeling faint while working in the yard prior to his heart attack. He reports no abdominal discomfort, leg swelling, or calf pain.He also has back pain and numbness in his leg, which he has been experiencing for 27 years at L4, L5, S1. He did not have surgery for this condition. The pain is not getting better, but it is not worse. Every time he does something, the nerve gets pinched, causing it to swell, and it takes about a month to recover. He takes oxycodone for back pain. Evin March MD [address] [place] [address], [phone], [facility] 12/06/2023 14:34:58 5 text/html /[facility] Gilberto patient is a 64-year-old male who presents for a follow-up visit.He reports experiencing tingling sensations in his hands, chest pain, and shoulder discomfort during physical exertion, attributing these symptoms to his current medication regimen. He also notes frequent bruising, muscle aches, and interactions between his prescribed acid medication and other drugs. He expresses concern about the potential impact of these medications on his blood pressure, despite having no history of hypertension over the past two decades. He recalls a discussion with his apartment maintenance supervisor approximately 1.5 months ago regarding his medications and their side effects. He was prescribed valsartan for perceived weakness in the lower part of his heart. He has been advised that he may be able to discontinue some of his medications after a year. He reports occasional feelings of weakness and acid-related abdominal pain. He does not experience chest pressure during exercise but reports discomfort when bending over. He maintains a regular exercise routine, working out every other day at 5 AM. He has a history of heartburn and gas in the back of his throat. He has been advised to discontinue his blood thinners prior to undergoing a colonoscopy. He has a history of two polyps detected at age 47, but subsequent colonoscopies have been negative. He is currently on atorvastatin, which he takes at bedtime. He reports that his skin becomes bumpy in cold weather and that he uses lotion regularly. He has noticed a decrease in the severity of his initial tingling sensations. Evin March MD [address] [place] [address], [phone], [facility] 04/25/2024 21:09:56 text/html History of Present IllnessThe patient, with heart disease, presents for a follow-up visit regarding recent weight loss.The patient has experienced recent weight loss, now weighing 171 pounds, attributed to changes in diet and regular exercise. They are concerned about the rapidity of the weight loss but confirm active engagement in workouts and dietary alterations. There is no unintended weight loss or loss of appetite, and they continue to enjoy food.They have a history of heart disease, having experienced a heart attack nearly a year ago. They report a sensation similar to pre-heart attack but deny any current chest pain, arm pain, or severe pain. They engage in regular exercise every other day, starting at 5:30 AM, without experiencing chest pain during these activities. Current medications include low-dose aspirin, atorvastatin 80 mg, clopidogrel, famotidine, and valsartan.They experience acid reflux symptoms, particularly when bending over, despite taking famotidine. They have switched between 20 mg and 40 mg doses without significant change in symptoms. Pantoprazole was previously used.They have a history of back, leg, and hip pain, which worsens without regular exercise. They take oxycodone up to four times a day for pain management and have been on this medication for 20 years.There is a family history of cancer, as their mother had cancer and underwent surgery. They are due for a colonoscopy and express concern about a past experience with the procedure.They quit smoking at age 42 and have not consumed alcohol for over six years. They report sleeping about nine hours a night but experience frequent awakenings to urinate and occasional blood on toilet paper, suspected to be hemorrhoids. Evin March MD [address] [place] [address], [place], [phone], [facility] 08/04/2024 08:57:25
== END 2024-08-15 09:41 | disposition home or self-care (01) ==
PROVIDERS: PCP Family Medicine; Visit Provider Internal Medicine Cardiovascular Disease
DX: I25.10 Atherosclerotic heart disease of native coronary artery without angina pectoris (principal); I25.5 Ischemic cardiomyopathy; R00.2 Palpitations; Z01.810 Encounter for preprocedural cardiovascular examination
CPT/HCPCS: 93010; 99214; G2211

== ENCOUNTER → 2024-08-15 09:04 | Outpatient (BNVA) | payer MEDICARE, SELFPAY | PROVIDERS: PCP Family Medicine; Visit Provider Internal Medicine Cardiovascular Disease | DX: Z01.810 Encounter for preprocedural cardiovascular examination (principal); I25.10 Atherosclerotic heart disease of native coronary artery without angina pectoris; I25.5 Ischemic cardiomyopathy; R00.2 Palpitations | CPT/HCPCS: 93005; 99212 ==

== ENCOUNTER 2024-12-25 14:00 | Outpatient (AMB) | payer MEDICARE, SELFPAY ==
[2024-12-25 14:06] VITALS: BP 122/58; PULSE 66; O2SAT 98; BMI 26.3
--- NOTE | 2024-12-25 14:06 | MHC.OFFVIS ---
Vital Signs 12/25/24 14:06 Height 5 ft 9 in Weight 178 lb BMI 26.3 BP 122/58 L Blood Pressure Location Rt brachial Position Sitting Pulse 66 Pulse Source Pulse Oximeter Pulse Oximetry (%) 98 Oxygen Delivery Method Room Air Intake Visit Reasons: colo screen Intake Note: New pt for recall colo screening. Last 3 colos with MGB. Q5 years per previous polypectomy. CC: Pt denies any GI sx or concerns at this time. Confirms current PPI is effective. Director Of Operations Home Health Required: No Accompanied by: Self / Same As Patient Allergies No Known Allergies Allergy (Verified 03/07/24 13:14) Medication List - Last Reconciled 12/25/24 by TARIQ Mckenzie- aspirin (Adult Aspirin Regimen) 81 mg PO DAILY atorvastatin (Lipitor) 80 mg PO DAILY metoprolol succinate ER 25 mg PO DAILY omeprazole 20 mg PO DAILY oxycodone-acetaminophen 5-325 mg 1 tab PO Q8H PRN HPI HPI colo screen: Details: 64 year old? male with past medical history of hyperlipidemia, ischemic cardiomyopathy, CAD, GERD, STEMI September 2023, mid RCA 100% stenosis status post ALINE is here today for pre colonoscopy screening.? Patient was sent to us by his PCP.? ? Patient denies any gastrointestinal symptoms in the past or at present.? Last colonoscopy 6-1/2 years ago. Patient was unable to go for colonoscopy last year due to [place] and ALINE. Patient is referred to us by his logistics vice president. Family history of CRC.? Denies history of difficulty with sedation or anesthesia in the past.? Negative for history of sleep apnea.? Denies any history of renal, pulmonary, or hepatic disease.?? No history of infectious? diseases like hepatitis A, B, C, HIV or tuberculosis.? Patient is on low-dose aspirin PFSH Medical History Subsequent ST elevation (STEMI) myocardial infarction of inferior wall CAD (coronary artery disease) Chronic back pain Surgical History H/O colonoscopy Stented coronary artery Hx of cardiac cath Family History Father No problems noted. Mother No problems noted. Social History Patient Tobacco Use Status: Former Tobacco user Substance Use Type: Marijuana Review of Systems Const Denies weight gain and Denies weight loss ENT Reports no additional complaints, Denies dysphagia and Denies odynophagia Card Reports no additional complaints Resp Reports no additional complaints GI Denies abdominal pain, Denies belching, Denies melena, Denies bloating, Denies change in bowel habits, Denies dysphagia, Denies excessive flatus, Denies dyspepsia, Denies heartburn, Denies diarrhea, Denies loose stools, Denies nausea, Denies odynophagia and Denies vomiting Reports no additional complaints Musc Reports no additional complaints Neuro Reports no additional complaints Psych Reports no additional complaints Endo Reports no additional complaints Physical Exam Const General: healthy appearing, no acute distress and well developed Nutritional Appearance: well nourished Orientation/consciousness: patient oriented x3 Resp Effort & Inspection: normal respiratory effort, able to speak in complete sentences, no tracheal deviation and symmetric chest movement Auscultation: clear to auscultation bilaterally Cardio Rate: regular rate GI Inspection: Yes normal to inspection and No distended Palpation (GI): Soft to palpation, not firm, nontender and No hepatosplenomegaly present Auscultation: normal bowel sounds General: Yes no CVA tenderness Back/Spine/Pelvis Back: no CVA tenderness Skin General skin exam: elasticity normal, turgor normal and dry skin Neuro General: patient oriented x3 Psych Appearance: grossly normal Mental Status: mental status grossly normal Assessment & Plan Assessment & Plan (1) Screen for colon cancer: Code(s): Z12.11 - Encounter for screening for malignant neoplasm of colon Plan Patient denies any GI, cardiac or respiratory symptoms.? Denies any issues with anesthesia in the past.? Denies any history of sleep apnea.? No history infectious diseases in the past or present.? Patient is on low-dose aspirin.? Family history of CRC. Patient referred to us by his logistics vice president. Unable to go for colonoscopy year ago as he had ALINE placed and was on Plavix. Currently he is only taking aspirin. May call Cardiology for clearance, however I assume he is cleared as his logistics vice president is sending him to us.? Patient denies melena, hematochezia, unintentional weight loss or ribbon like stools.? Family history of CRC. Patient reports suboptimal prep last colonoscopy. Patient will take Dulcolax 7 days before procedure for 6 days and day before he will follow split MiraLax prep. Discussed at length the pre-procedure,? prep, diet & medications as well as what to expect prior, during and after the procedure.?? Stressed the importance of good bowel prep.? Recommended the use of Vaseline or Calmoseptine OTC & baby wipes with bowel movements to promote comfort.? ?Patient verbalizes understanding and agrees to plan of care.? He was given the opportunity to ask questions and all questions answered.? We will see him after the procedure.? Medications: New bisacodyl (Dulcolax (bisacodyl)) Start taking 2 tablet every night 7 days before the procedure and 1 day before procedure take 4 tablets at noon time followed by MiraLax prep 10 mg (2 x 5 mg) PO BEDTIME 16 tabs 0RF Z12.11 - Encounter for screening for malignant neoplasm of colon polyethylene glycol 3350 (Miralax) As directed by gastroenterology department at [facility] 238 grams PO ONCE 238 grams 0RF Z12.11 - Encounter for screening for malignant neoplasm of colon Coding Level of Care Code New Pt Level 3 (29014) Diagnoses Screen for colon cancer Z12.11 Time Spent (min) 40 Comment 30 minutes spent with patient and additional 10 minutes spent reviewing his records
--- OUTSIDE RECORDS SUMMARY | 2024-12-25 17:08 | XMS_ITS | Clinical Summary ---
Author Organization [facility] Address [address] [facility] [address] [place] [id number] Phone Care Team Providers Care Claim Analyst Name Role Phone Darwin Bryan MD Primary Care Provider [phone] Allergies No known active allergies Medications omeprazole (PRILOSEC) 20 mg TbEC Take 20 mg by mouth daily before breakfast. Active oxyCODONE (OXYCONTIN) 10 mg 12 hr tabletIndicatio ns:chronic pain Take 10 mg by mouth every 12 (twelve) hours. Indications: chronic pain Active oxyCODONE-aceta minophen (PERCOCET) 5-325 mg per tablet Take 1 tablet by mouth every 4 (four) hours as needed for pain (specific location in comments). Active Social History Tobacco Use Types Packs/Day Years Used Date Smoking Tobacco: Former Cigarettes Q uit: 04/08/2000 Smokeless Tobacco: Never Alcohol Use Standard Drinks/Week Comments Not Currently 0 (1 standard drink = 0.6 oz pur e alcohol) Education Answer Date Recorded Are you interested in more education? Not on lali e 08/12/2022 Are you concerned about learning? Not on file 08/12/2022 No 08/12/2022 No 08/12/2022 Digital Access Answer Date Recorded No 09/10/2022 No 09/10/2022 No 09/10/2022 Reliable internet access at home? Not on file 09/10/2022 Device with a working camera? Not on file Sex and Gender Information Value Date Recorded Sex Assigned at Not on file Legal Sex Male 9:45 PM EDT Gender Identity Not on file Sexual Orientation Not on file Last Filed Vital Signs Vital Sign Reading Time Taken Comments Blood Pressure 127/78 04/08/2019 8:49 AM EST Pulse 70 04/08/2019 7:35 AM EST Temperature 36.7 C (98.1 F) 04/08/2019 8:34 AM EST Respiratory Rate 10 04/08/2019 7:35 AM EST Oxygen Saturation 98% 04/08/2019 8:49 AM EST Inhaled Oxygen Concentration - - Weight 81.4 kg (179 lb 6.4 oz) 04/08/2019 7:35 A M EST Height 175.3 cm (5' 9 ) 04/08/2019 7:35 AM EST Body Mass Index 26.49 04/08/2019 7:35 AM EST Plan of Treatment Health Maintenance Due Date Last Done Comments LIPID PANEL 1960 DEPRESSION SCREENING 1974 SMOKING Hx and SMOKELESS TOBACCO SCREENING 1975 HEPATITIS C SCREENING 1980 HIV ONE-TIME SCREENING (18-65 YEARS) 1980 COLOGUARD 2007 FIT TEST 2007 FOBT 2007 SIGMOIDOSCOPY 2007 VIRTUAL COLONOSCOPY 2007 PNEUMOCOCCAL VACCINES (50+ years) (1 of 1 - PCV) 2012 ZOSTER VACCINES (1 of 2) 2012 INFLUENZA VACCINE (#1) 2024 , 12/14/2018, 12/14/2017, Additional history exists COVID-19 VACCINE ( season) 2024 COLONOSCOPY 04/08/2029 04/08/2019 COLORECTAL CANCER SCREENING 04/08/2029 Adult Td,Tdap Booster 07/09/2030 07/09/2020, 011 RSV VACCINE (1 - 1-dose 75+ series) 2037 HEPATITIS A VACCINES Aged Out No long er eligible based on patient's age to complete this topic HIB VACCINES Aged Out No longer eligi ble based on patient's age to complete this topic MENINGOCOCCAL VACCINES (ACWY) Aged Out No longer eligible based on patient's age to complete this topic MENINGOCOCCAL VACCINES (B) Aged Out N o longer eligible based on patient's age to complete this topic Medical Devices Not on file Procedures Procedure Name Priority Date/Time Associated Diagnosis Comments ENDOSCOPY, COLON 04/08/2019 7:31 AM EST from Last 3 Months or Most Recently Relevant to Health Maintenance Results * ENDOSCOPY, COLON (04/08/2019 7:31 AM EST) Narrative Transcriptions Glendy Calvo MD - 04/08/2019 7:31 AM EST Patient Name: Gibson Medina Attending MD:: GLENDY CALVO MD Procedure Date: 04/08/2019 7:31 AM Date of : 1960 Age: 59 Admit Type: Outpatient Gender: Male Room: [place] [address] Referring MD: DARWIN BRYAN MD Exam Type: Colonoscopy Indications: High risk colon cancer surveillance: Personal historyof colonic polyps, Last colonoscopy: May 2012(adenoma '08) Medications: Propofol per Anesthesia Procedure: Informed consent was obtained from the patient after discussion of the indications, limitations,alternatives, benefits, and risks of the procedure. Risksspecifically discussed include but are not limited to medication reactions, missed lesions, bleeding, perforation, orthe need for emergent surgery. Throughout the procedure, the patient's blood pressure, pulse, end-tidal CO2, and oxygen saturations were monitored continuously. The Olympus adult variable colonoscope [id number] #4 was introduced through the anus and advanced to theterminal ileum, with identification of the appendiceal orificeand IC valve. The terminal ileum, ileocecal valve,appendiceal orifice, and rectum were photographed. The colonoscopywas performed without difficulty. The patient tolerated the procedure well. The quality of the bowel preparationwas good. The bowel preparation used was GoLYTELY via split dose instruction. Complications: No immediate complications. Estimated blood loss:None. Findings: The perianal and digital rectal examinations werenormal. Pertinent negatives include normal prostate (size,shape, and consistency). Internal hemorrhoids were found during retroflexion.The hemorrhoids were small. Multiple medium-mouthed diverticula were found in the entire colon, especially sigmoid. There was evidence of diverticular spasm thropugh the sigmoid. The exam was otherwise without abnormality. The terminal ileum appeared normal. Retroflexion in the right colon was performed. Impression: - Internal hemorrhoids. - Moderate diverticulosis in the entire examined colon. There was evidence of diverticular spasm. - The examination was otherwise normal. - The examined portion of the ileum was normal. - No specimens collected. Recommendation: - High fiber diet. - Repeat colonoscopy in 5 years for surveillance. GLENDY CALVO MD 04/08/2019 8:33:14 AM This report has been signed electronically. Number of Addenda: 0 Note Initiated On: 04/08/2019 7:31 AM Procedure Code(s): --- Professional --- 19937, Colonoscopy, flexible; diagnostic, including collection of specimen(s) by brushing or washing, when performed (separateprocedure) --- Technical --- 26708, Colonoscopy, flexible; diagnostic, including collection of specimen(s) by brushing or washing, when performed (separateprocedure) Diagnosis Code(s): --- Professional --- Z86.010, Personal history of colonic polyps K64.8, Other hemorrhoids K57.30, Diverticulosis of large intestine without perforation orabscess without bleeding --- Technical --- Z86.010, Personal history of colonic polyps K64.8, Other hemorrhoids K57.30, Diverticulosis of large intestine without perforation orabscess without bleeding CPT copyright 2018 [employer]. All rights reserved. The codes documented in this report are preliminary and upon websphere message broker developer reviewmay be revised to meet current compliance requirements. [address] [place] [id number] Darwin Bryan MD GI PROCEDURE ORDERABLES Final Re sult from Last 3 Months or Most Recently Relevant to Health Maintenance Insurance MEDICARE PART A & B MEDICARE PART A & B MEDICARE PART A & B MEDICARE PART A & B MEDICARE PART A & B MEDICARE PART A & B MEDICARE PART A & B MEDICARE PART A & B MEDICARE PART A & B Care Teams Claim Analyst Relationship Specialty Start Date End Date Darwin Bryan MD [email or web address] PCP - General Family Medicine 03/29/19 Additional Source Comments The information contained in this document represents components of the legal health record. It is not the complete legal health record.[facility]
--- OUTSIDE RECORDS SUMMARY | 2024-12-25 17:08 | XMS_ITS | Encounter Summary ---
Author Organization [facility] Address [address] [facility] [address] [place] [address] Phone Care Team Providers Care Lead Network Architect Name Role Phone Darwin Bryan MD Primary Care Provider [phone] Encounter Details Date Type Department Care Team (Late st Contact Info) Description 06/27/2017 Procedure Pass [facility] Endoscopy Admitting Dept Virtual Department [address] [place] [address] Social History Tobacco Use Types Packs/Day Years Used Date Smoking Tobacco: Never Assessed Sex and Gender Information Value Date Recorded Sex Assigned at Not on file Legal Sex Male 9:45 PM EDT Gender Identity Not on file Sexual Orientation Not on file documented as of this encounter Plan of Treatment Not on file documented as of this encounter Visit Diagnoses Not on filedocumented in this encounter Care Teams Lead Network Architect Relationship Specialty Start Date End Date Darwin Bryan MD [email or web address] PCP - General Family Medicine 03/29/19 documented as of this encounter Additional Source Comments The information contained in this document represents components of the legal health record. It is not the complete legal health record.[facility]
--- OUTSIDE RECORDS SUMMARY | 2024-12-25 17:08 | XMS_ITS | Encounter Summary ---
Author Organization [facility] Address [address] [facility] [address] [place] [address] Phone Care Team Providers Care County Supervisor Name Role Phone Darwin Bryan MD Primary Care Provider [phone] Encounter Details Date Type Department Care Team (Late st Contact Info) Description 04/08/2019 Procedure Pass [facility] Endoscopy Admitting Dept Virtual Department [address] [place] [id number] Social History Tobacco Use Types Packs/Day Years Used Date Smoking Tobacco: Former Cigarettes Q uit: 04/08/2000 Smokeless Tobacco: Never Alcohol Use Standard Drinks/Week Comments Not Currently 0 (1 standard drink = 0.6 oz pur e alcohol) Sex and Gender Information Value Date Recorded Sex Assigned at Not on file Legal Sex Male 9:45 PM EDT Gender Identity Not on file Sexual Orientation Not on file documented as of this encounter Plan of Treatment Not on file documented as of this encounter Visit Diagnoses Not on filedocumented in this encounter Care Teams County Supervisor Relationship Specialty Start Date End Date Darwin Bryan MD PCP - General Family Medicine 03/29/19 documented as of this encounter Additional Source Comments The information contained in this document represents components of the legal health record. It is not the complete legal health record.[facility]
== END 2024-12-25 15:27 | disposition home or self-care (01) ==
LOC: HO.HGI 14:00
PROVIDERS: PCP Family Medicine; Visit Provider Nurse Practitioner Family
DX: Z01.818 Encounter for other preprocedural examination (principal); Z12.11 Encounter for screening for malignant neoplasm of colon
CPT/HCPCS: 99024

== ENCOUNTER → 2024-12-25 14:00 | Outpatient (BNVA) | payer MEDICARE, SELFPAY | PROVIDERS: PCP Family Medicine; Visit Provider Nurse Practitioner Family | DX: Z01.818 Encounter for other preprocedural examination (principal) | CPT/HCPCS: 99212 ==

== ENCOUNTER 2025-01-06 08:29 | Day surgery (SDC) | payer MEDICARE, SELFPAY ==
[2025-01-02 13:07] VITALS: BMI 26.3
[2025-01-06 08:48] VITALS: BMI 24.7
[2025-01-06] MEDS: Lactated Ringers 1,000 ML 100 ML IVCONT (09:11)
--- NOTE | 2025-01-06 10:44 | HO.ANESPROP2 ---
Documented by User: Madie Yi NP 01/03/25 09:41 HPI - Anesthesia Eval Consult details Narrative: 64yo M for Colonoscopy Cardiac optimized. [place] [facility] [place] s/p STEMI/Stent 09/2023. 1 year DAPT completed 09/2024. (Previously with ischemic CMP, EF normalized by ECHO 10/2023) Stable and asymptomatic per cardiac office visit 08/2024. PMFSH Active Problems Active Problems: All Active Problems HLD (hyperlipidemia) (Acute) Ischemic cardiomyopathy (Acute) CAD (coronary artery disease) (Acute) Past Medical History Medical History (Updated 01/06/25 @ 08:48 by Ilana Nix, RN) Elevated cholesterol Subsequent ST elevation (STEMI) myocardial infarction of inferior wall CAD (coronary artery disease) Chronic back pain Family History Family History Father No problems noted. Mother No problems noted. Surgical History Surgical History H/O colonoscopy Stented coronary artery (~09/20/23) Hx of cardiac cath Social History Social History Patient Tobacco Use Status: Former Tobacco user Use of substances other than those prescribed or required for medical reasons: Yes Substance Use Type: Marijuana Substance Use Type Other:: last used 01/05 Are you DNR?: No Advance Directives: No Advance Directives Information Provided: Yes Meds Allergies Allergy/AdvReac Type Severity Reaction Status Date / Time No Known Allergies Allergy Verified 01/06/25 09:12 Home Medications ?Medication ?Instructions ?Recorded ?Confirmed ?Last Taken ?Type aspirin 81 mg tablet,delayed 81 mg PO DAILY 10/04/23 01/06/25 12/30/24 History release (Adult Aspirin Regimen) metoprolol succinate 25 mg 25 mg PO DAILY 10/04/23 01/06/25 01/06/25 06:00 History tablet,extended release 24 hr oxycodone-acetaminophen 5 mg-325 1 tab PO Q8H PRN Back Pain 10/04/23 01/06/25 Unknown History mg tablet atorvastatin 80 mg tablet (Lipitor) 80 mg PO DAILY 12/25/24 01/06/25 Unknown History omeprazole 20 mg capsule,delayed 20 mg PO DAILY 12/25/24 01/06/25 Unknown History release Exam Height,Weight and Vital Signs: Height 5 ft 9 in Weight 80.739 kg Narrative Narrative: EKG 08/2024 EKG Details: EKG shows normal sinus rhythm with normal EKG at 60 beats per minute ECHO 10/2023 Conclusions: - Normal LV ejection fraction 55-60% with impaired relaxation filling pattern with regional wall motion abnormality in RCA territory Assessment and Plan Assessment Anesthesia Assessment: Chart Reviewed Documented by User: Ilana Mcmanus DO 01/06/25 10:46 [facility] Past Medical History Medical History (Updated 01/06/25 @ 08:48 by Ilana Nix RN) Elevated cholesterol Subsequent ST elevation (STEMI) myocardial infarction of inferior wall CAD (coronary artery disease) Chronic back pain Family History Family History Father No problems noted. Mother No problems noted. Family history of problems with anesthesia: No Surgical History Surgical History H/O colonoscopy Stented coronary artery (~09/20/23) Hx of cardiac cath History of Problems with Anesthesia: No Social History Social History Patient Tobacco Use Status: Former Tobacco user Use of substances other than those prescribed or required for medical reasons: Yes Substance Use Type: Marijuana Substance Use Type Other:: last used 01/05 Are you DNR?: No Advance Directives: No Advance Directives Information Provided: Yes Meds Allergies Allergy/AdvReac Type Severity Reaction Status Date / Time No Known Allergies Allergy Verified 01/06/25 09:12 Home Medications ?Medication ?Instructions ?Recorded ?Confirmed ?Last Taken ?Type aspirin 81 mg tablet,delayed 81 mg PO DAILY 10/04/23 01/06/25 12/30/24 History release (Adult Aspirin Regimen) metoprolol succinate 25 mg 25 mg PO DAILY 10/04/23 01/06/25 01/06/25 06:00 History tablet,extended release 24 hr oxycodone-acetaminophen 5 mg-325 1 tab PO Q8H PRN Back Pain 10/04/23 01/06/25 Unknown History mg tablet atorvastatin 80 mg tablet (Lipitor) 80 mg PO DAILY 12/25/24 01/06/25 Unknown History omeprazole 20 mg capsule,delayed 20 mg PO DAILY 12/25/24 01/06/25 Unknown History release Exam Exam Date and Time: 01/06/25 1045 Airway Mallampati Class: I TM Dist: >3cm Neck ROM: Full Loose/Missing/Broken Teeth: Yes (a few missing teeth but no loose or broken teeth) Heart: S1S2 Lungs: CTAB Assessment and Plan Assessment Anesthesia Assessment: Anesthesia Plan Discussed and Chart Reviewed Final Anesthetic Review Family History of Problems with Anesthesia: No History of Problems with Anesthesia: No NPO: Yes ASA Class: II Final Preanesthetic Review: No Changes in Pt Med Stat, Meds/Allgs Chart Reviewed, Consent Obtained/Reviewed and Anes Risks/Benef Reviewed Patient Risk: Low Procedure Risk: Low Anesthetic Plan Anesthetic Plan: MAC: and Agree w/ Assess. and Plan Disposition: Standard PACU
--- NOTE | 2025-01-06 10:44 | MHC.SHP ---
Pre-Procedural Eval Section A - 24 Hr Update-Section A only Date of Service: 01/06/25 The patient is an INPATIENT: No Changes since office visit: Yes Patient answered all questions; No Cold of Flu in the past 2 weeks, No New Medical Problems and No Changes in Medication The patient has been examined within 24 hours of the surgical procedure. The History & Physical has been completed within 30 days and I have reviewed it.: Yes Section B - Complete if H&P > 30 days Chief Complaint: Surveillance for colon polyps Allergies: Allergies Allergy/AdvReac Type Severity Reaction Status Date / Time No Known Allergies Allergy Verified 01/06/25 09:12 Exam Surgical H&P Exam: Normal: Heart, Normal: Lungs, Normal: Extremities and Normal: Abdomen Plan Diagnosis/Plan: Unchanged I have reviewed the history and physical and performed a pertinent physical examination on my patient. No changes have occurred unless specified. Time Spent With Patient Time: Total time managing care of this patient today ____ minutes.
--- NOTE | 2025-01-06 11:38 | P.OPN-COLO_ITS ---
Colonoscopy Operative Note Operative Note Date of Service: 01/06/25 Narrative: COLONOSCOPY TILL CECUM WITH SNARE POLYPECTOMY Pre-op diagnosis: Surveillance for colon polyps. Post-op diagnosis:? Colon polyp, Diverticulosis, hemorrhoids Endoscopist:? Shane Lucio MD Anesthesia:?MAC Consent: Indications for the procedure and potential complications of bleeding, perforation, reaction to medications and missed diagnosis were discussed with the patient and informed consent was obtained. Instrument: Olympus CF H 190 L variable stiffness adult colonoscope Monitoring: Vital signs and clinical assessment, intermittent blood pressure monitoring, continuous EKG monitoring, Pulse oximetry and Carbon Dioxide monitoring were done throughout the procedure. Please see anesthesia flowsheet. Colon withdrawl time was 21 minutes. Procedure: The patient was placed in the left lateral decubitis position and pre-procedure medications were administered. After a digital rectal examination of the ano-rectum, the video colonoscope was inserted into the rectum and advanced through the colon to the cecum. The colonoscope was slowly withdrawn in a retrograde panoramic fashion and the colon mucosa was carefully examined including a retroflexed view of the rectum. Findings and interventions are described below. Procedure Difficulty: Colon was long and tortuous and there was some loop formation Findings: Terminal Ileum: Not evaluated Cecum: Normal Ascending Colon: Moderate diverticulosis throughout the entire colon Transverse Colon: Moderate diverticulosis throughout the entire colon Descending Colon: Moderate diverticulosis throughout the entire colon Sigmoid Colon: A 7-8 mm hemorrhagic appearing polyps in the distal sigmoid colon at 20 cms - removed with a hot snare. Severe diverticulosis with luminal narrowing Rectum: Normal Ano-rectum: Moderate internal hemorrhoids Colon preparation: Good after copious irrigation. [place] Bowel Preparation Scale Right colon; 2 Transverse colon: 2 Left colon; 2 (0 = Unprepared colon segment with mucosa not seen due to solid stool that cannot be cleared. 1 = Portion of mucosa of the colon segment seen, but other areas of the colon segment not well seen due to staining, residual stool and/or opaque liquid. 2 = Minor amount of residual staining, small fragments of stool and/or opaque liquid, but mucosa of colon segment seen well. 3 = Entire mucosa of colon segment seen well with no residual staining, small fragments of stool or opaque liquid) Impression and Post Procedure Diagnosis: Colonoscopy Findings: One small polyp was were removed Moderate diverticulosis seen in the entire colon Moderate hemorrhoids on retroflexed exam. Plan: I will send a letter with biopsy results. Repeat Colonoscopy in 5 years if polyps are adenomatous and due to history of colon polyps. Above findings were reviewed with the patient and relevant handouts were given and the discharge area.
[2025-01-06 11:39] VITALS: BP 95/58; PULSE 58; RESP 16; TEMP 36.1; O2SAT 97
[2025-01-06 11:50] VITALS: BP 104/51; PULSE 68; RESP 18; O2SAT 98
[2025-01-06 12:05] VITALS: BP 107/52; PULSE 60; RESP 18; TEMP 36.1; O2SAT 98
== END 2025-01-06 12:30 | disposition home or self-care (01) ==
PROVIDERS: PCP Family Medicine; Visit Provider Internal Medicine Gastroenterology
PROC: 0DJD8ZZ Inspection of Lower Intestinal Tract, Via Natural or Artificial Opening Endoscopic (ICD-10-PCS; CPT 45378; principal; 2025-01-06 10:20)
DX: Z12.11 Encounter for screening for malignant neoplasm of colon (principal); Z86.0101 Personal history of adenomatous and serrated colon polyps; K51.40 Inflammatory polyps of colon without complications; K57.30 Diverticulosis of large intestine without perforation or abscess without bleeding; K64.8 Other hemorrhoids; K21.9 Gastro-esophageal reflux disease without esophagitis; I25.2 Old myocardial infarction; I25.5 Ischemic cardiomyopathy; I25.10 Atherosclerotic heart disease of native coronary artery without angina pectoris; Z95.5 Presence of coronary angioplasty implant and graft; E78.5 Hyperlipidemia, unspecified; G89.29 Other chronic pain; M54.9 Dorsalgia, unspecified; Z79.82 Long term (current) use of aspirin; Z79.899 Other long term (current) drug therapy; Z87.891 Personal history of nicotine dependence
CPT/HCPCS: 45385; 88305; J2003; J2704

== ENCOUNTER → 2025-01-06 08:29 | Outpatient (BNV) | payer MEDICARE, SELFPAY | PROVIDERS: PCP Family Medicine; Visit Provider Internal Medicine Gastroenterology | DX: Z12.11 Encounter for screening for malignant neoplasm of colon (principal); K63.5 Polyp of colon; K57.90 Diverticulosis of intestine, part unspecified, without perforation or abscess without bleeding; K64.8 Other hemorrhoids | CPT/HCPCS: 45385 ==